=== PATIENT | male | born 1945 | race Caucasian/White ===

== ENCOUNTER 2016-06-02 12:18 | Outpatient (CLI) ==
[2016-02-09 16:20] VITALS: BMI 27.6
[2016-06-02 12:39] LABS: BASOPHILS # (AUTO) 0.1 K/uL (0-0.2); BASOPHILS % (AUTO) 0.9 % (0.0-3.0); EOSINOPHILS # (AUTO) 0.1 K/ul (0.0-0.7); EOSINOPHILS % (AUTO) 1.1 % (0.0-7.0); HEMATOCRIT 38.4 % (42.0-52.0); HEMOGLOBIN 12.2 g/dl (14.0-18.0); LYMPHOCYTES # (AUTO) 3.3 K/uL (0.60-3.4); LYMPHOCYTES % (AUTO) 29.2 (10.0-50.0); MEAN CORPUSCULAR HEMOGLOBIN 27.7 pg (27.0-31.0); MEAN CORPUSCULAR HGB CONC 31.8 (31.8-35.4); MEAN CORPUSCULAR VOLUME 87.3 fl (80.0-94.0); MONOCYTES % (AUTO) 8.9 (0-10); NEUTROPHILS # (AUTO) 6.6 K/ul (2.0-6.9); NEUTROPHILS % (AUTO) 58.9; PLATELET COUNT 316 10^3/uL (140-440); WHITE BLOOD COUNT 11.18 K/ul (4.2-10.2)
[2016-06-02 13:01] LABS: ALBUMIN 3.6 g/dL (3.4-5.0); ALBUMIN/GLOBULIN RATIO 0.88; ANION GAP 14.2; BILIRUBIN,TOTAL 0.26 mg/dL (0.00-1.20); BUN/CREATININE RATIO 13.4; CALCIUM 9.3 mg/dL (8.2-10.2); CREATININE 1.79 mg/dL (0.60-1.10); POTASSIUM 5.2 mmol/L (3.5-5.1); TOTAL PROTEIN 7.7 g/dL (5.8-8.1)
== END 2016-06-02 12:19 | disposition home or self-care (01) ==
LOC: LAB 12:18
PROVIDERS: ATTEND Emergency Medicine
DX: I10 Essential (primary) hypertension (principal); E11.9 Type 2 diabetes mellitus without complications; R10.13 Epigastric pain
CPT/HCPCS: 36415; 80053; 82150; 83036; 83690; 85025

== ENCOUNTER 2016-06-07 09:29 | Outpatient (CLI) | payer OTHER ==
[2016-02-09 16:20] VITALS: BMI 27.6
--- NOTE | 2016-06-07 10:22 | US ---
EXAM: Abdominal ultrasound limited HISTORY: Epigastric pain for 2 weeks COMPARISON: CT abdomen 02/09/2016, 03/28/2015 and abdominal ultrasound 09/28/2011 TECHNIQUE: Sonographic and limited Doppler evaluation of the right upper quadrant was performed. FINDINGS: The liver is increased in echogenicity and measures enlarged at 18.4 cm. There is a comp wendy hypoechoic lesion in the left hepatic lobe measuring 1.2 x 1.3 x 0.8 cm with no internal Doppler flow. This is similar in appearance and position to area of hypoechogenicity on ultrasound abdomen 2012 image 55. The portal vein is patent. The gallbladder demonstrates mild layering sludge with no visualized hyperechoic stones. The gallbladder wall measures 0.3 cm in thickness. Common bile du ct is unremarkable and measures 0.4 cm in diameter. The pancreas is not visualized due to significa nt overlying bowel gas. The right kidney measures 8.0 x 3.4 x 3.7 cm with cortical thickness of 0.9 cm. IMPRESSION: 1. Increased echogenicity of the liver consistent with hepatic steatosis with mild hepatic enlargem ent. 2. Layering gallbladder sludge without wall thickening or pericholecystic fluid. 3. Hypoechoic liver lesion adjacent to the gallbladder likely represents focal fatty sparing and is unchanged in comparison to ultrasound 2012.
== END 2016-06-07 09:30 | disposition home or self-care (01) ==
LOC: RAD 09:29
PROVIDERS: ATTEND Emergency Medicine
DX: R10.13 Epigastric pain (principal); F33.2 Major depressive disorder, recurrent severe without psychotic features; F01.50 Vascular dementia, unspecified severity, without behavioral disturbance, psychotic disturbance, mood disturbance, and anxiety
CPT/HCPCS: 90853

== ENCOUNTER 2016-06-07 10:00 | Outpatient (RCR) ==
[2016-02-09 16:20] VITALS: BMI 27.6
== END 2016-06-08 ==
LOC: NEWBEG 10:00
PROVIDERS: ATTEND Psychiatry & Neurology Psychiatry
DX: F33.2 Major depressive disorder, recurrent severe without psychotic features (principal); F01.50 Vascular dementia, unspecified severity, without behavioral disturbance, psychotic disturbance, mood disturbance, and anxiety
CPT/HCPCS: 90853

== ENCOUNTER 2016-07-02 10:00 | Outpatient (RCR) ==
[2016-02-09 16:20] VITALS: BMI 27.6
== END 2016-07-06 ==
LOC: NEWBEG 10:00
PROVIDERS: ATTEND Psychiatry & Neurology Psychiatry
DX: F33.2 Major depressive disorder, recurrent severe without psychotic features (principal); F01.50 Vascular dementia, unspecified severity, without behavioral disturbance, psychotic disturbance, mood disturbance, and anxiety
CPT/HCPCS: 90853; 99213

== ENCOUNTER 2016-07-23 10:00 | Outpatient (RCR) ==
[2016-02-09 16:20] VITALS: BMI 27.6
== END 2016-08-06 ==
LOC: NEWBEG 10:00
PROVIDERS: ATTEND Psychiatry & Neurology Psychiatry
DX: F33.2 Major depressive disorder, recurrent severe without psychotic features (principal); F01.50 Vascular dementia, unspecified severity, without behavioral disturbance, psychotic disturbance, mood disturbance, and anxiety
CPT/HCPCS: 90853; 99213

== ENCOUNTER 2016-08-04 10:07 | Outpatient (CLI) ==
[2016-02-09 16:20] VITALS: BMI 27.6
== END 2016-08-04 10:08 | disposition home or self-care (01) ==
LOC: WOUND 10:07 → EDSTATUS 10:08
PROVIDERS: ATTEND Nurse Practitioner Family
DX: E11.9 Type 2 diabetes mellitus without complications (principal); I10 Essential (primary) hypertension
CPT/HCPCS: 99203; 99212

== ENCOUNTER 2016-08-12 10:32 | Outpatient (CLI) ==
[2016-02-09 16:20] VITALS: BMI 27.6
[2016-08-12 11:06] LABS: ANION GAP 13.6; BUN/CREATININE RATIO 15.33; CALCIUM 9.5 mg/dL (8.2-10.2); CREATININE 1.5 mg/dL (0.60-1.10); POTASSIUM 4.6 mmol/L (3.5-5.1)
== END 2016-08-12 10:33 | disposition home or self-care (01) ==
LOC: CAR 10:32
PROVIDERS: ATTEND Internal Medicine Pulmonary Disease
DX: R59.0 Localized enlarged lymph nodes (principal); I10 Essential (primary) hypertension; E11.9 Type 2 diabetes mellitus without complications
CPT/HCPCS: 36415; 80048; 93005; 93010

== ENCOUNTER 2016-08-25 10:05 | Outpatient (CLI) | payer OTHER ==
[2016-02-09 16:20] VITALS: BMI 27.6
== END 2016-08-25 10:06 | disposition home or self-care (01) ==
LOC: WOUND 10:05
PROVIDERS: ATTEND Nurse Practitioner Family
DX: E11.49 Type 2 diabetes mellitus with other diabetic neurological complication (principal); I10 Essential (primary) hypertension; K21.9 Gastro-esophageal reflux disease without esophagitis; F41.9 Anxiety disorder, unspecified; F33.9 Major depressive disorder, recurrent, unspecified; M54.5 Low back pain; C34.90 Malignant neoplasm of unspecified part of unspecified bronchus or lung; L30.9 Dermatitis, unspecified
CPT/HCPCS: 99202; 99212

== ENCOUNTER 2016-08-27 09:43 | Outpatient (CLI) ==
[2016-02-09 16:20] VITALS: BMI 27.6
[2016-08-27 10:44] VITALS: BP 132/74; TEMP 97.3
[2016-08-27] MEDS ORDERED: VITAMIN B-12 IM STA (10:45)
--- NOTE | 2016-08-27 11:10 | CT ---
EXAM: CT of the chest with and without contrast History: Lung cancer, follow-up Comparison: Chest radiograph 06/30/2016, chest CT 02/09/2016, pet CT 07/21/2016 Technique: Multiplanar CT images through the thorax were obtained with and without the administrati on of IV contrast Findings: Heart size is normal. Mild bilateral gynecomastia. No pericardial effusion. Coronary ca lcifications. Great vessels are unremarkable. No pathologically enlarged axillary lymph nodes. 1. 6 cm right hilar lymph node. No pathologically enlarged mediastinal lymph nodes. 1.7 cm x 1.3 cm sp iculated right lower lobe lung nodule slightly increased in size. 1 cm cavitary nodule within the li ngula is probably not significantly changed. The other sub-centimeter ground-glass lung nodules are stable. No consolidated pneumonia. No pleural fluid and no pneumothorax.. Within the visualized upper abdomen, fatty infiltration of the liver. 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 No acute osseous abnormalities. Impression: 1. Slight interval increase in size of a spiculated malignant right lower lobe lung nodule. 2. Mildly enlarged right hilar lymph node could be metastatic. 3. The other bilateral lung nodules are unchanged. 4. Coronary artery disease.
== END 2016-08-27 09:44 | disposition home or self-care (01) ==
LOC: OPMED 09:43
PROVIDERS: ATTEND Internal Medicine Medical Oncology
DX: E53.8 Deficiency of other specified B group vitamins (principal); C34.90 Malignant neoplasm of unspecified part of unspecified bronchus or lung; F33.2 Major depressive disorder, recurrent severe without psychotic features; F01.50 Vascular dementia, unspecified severity, without behavioral disturbance, psychotic disturbance, mood disturbance, and anxiety
CPT/HCPCS: 90853; 96372

== ENCOUNTER 2016-09-03 09:31 | Outpatient (CLI) ==
[2016-02-09 16:20] VITALS: BMI 27.6
[2016-09-03 09:57] VITALS: BP 124/55; TEMP 97
[2016-09-03] MEDS: VITAMIN B-12 IM STA (10:04)
[2016-09-07 08:53] LABS: IMMUNOGLOBULIN M, QN, SERUM 40 mg/dL (15-143)
== END 2016-09-03 09:32 | disposition home or self-care (01) ==
LOC: OPMED 09:31
PROVIDERS: ATTEND Internal Medicine Medical Oncology
DX: C34.91 Malignant neoplasm of unspecified part of right bronchus or lung (principal); D68.62 Lupus anticoagulant syndrome; D80.6 Antibody deficiency with near-normal immunoglobulins or with hyperimmunoglobulinemia; E53.9 Vitamin B deficiency, unspecified; F33.2 Major depressive disorder, recurrent severe without psychotic features; F01.50 Vascular dementia, unspecified severity, without behavioral disturbance, psychotic disturbance, mood disturbance, and anxiety
CPT/HCPCS: 36415; 85705; 86320; 90853; 96372

== ENCOUNTER 2016-09-03 10:00 | Outpatient (RCR) ==
[2016-02-09 16:20] VITALS: BMI 27.6
== END 2016-09-05 ==
LOC: NEWBEG 10:00
PROVIDERS: ATTEND Psychiatry & Neurology Psychiatry
DX: F33.2 Major depressive disorder, recurrent severe without psychotic features (principal); F01.50 Vascular dementia, unspecified severity, without behavioral disturbance, psychotic disturbance, mood disturbance, and anxiety
CPT/HCPCS: 90853; 99213

== ENCOUNTER 2016-09-08 09:28 | Outpatient (CLI) ==
[2016-02-09 16:20] VITALS: BMI 27.6
== END 2016-09-08 09:29 | disposition home or self-care (01) ==
LOC: WOUND 09:28
PROVIDERS: ATTEND Nurse Practitioner Family
DX: E11.49 Type 2 diabetes mellitus with other diabetic neurological complication (principal); I10 Essential (primary) hypertension; K21.9 Gastro-esophageal reflux disease without esophagitis; F41.9 Anxiety disorder, unspecified; F33.9 Major depressive disorder, recurrent, unspecified; M54.5 Low back pain; C34.90 Malignant neoplasm of unspecified part of unspecified bronchus or lung; L30.9 Dermatitis, unspecified
CPT/HCPCS: 90832; 99211; 99213

== ENCOUNTER 2016-09-13 12:07 | Outpatient (CLI) | payer OTHER ==
[2016-02-09 16:20] VITALS: BMI 27.6
[2016-09-13 12:35] VITALS: BP 125/54; TEMP 98.8
[2016-09-13] MEDS: VITAMIN B-12 IM ONE (12:56)
== END 2016-09-13 12:08 | disposition home or self-care (01) ==
LOC: OPMED 12:07
PROVIDERS: ATTEND Internal Medicine Medical Oncology
DX: E53.8 Deficiency of other specified B group vitamins (principal); F33.2 Major depressive disorder, recurrent severe without psychotic features; F01.50 Vascular dementia, unspecified severity, without behavioral disturbance, psychotic disturbance, mood disturbance, and anxiety
CPT/HCPCS: 90853; 96372

== ENCOUNTER 2016-09-22 09:23 | Outpatient (CLI) | payer OTHER ==
[2016-02-09 16:20] VITALS: BMI 27.6
== END 2016-09-22 09:24 | disposition home or self-care (01) ==
LOC: WOUND 09:23
PROVIDERS: ATTEND Nurse Practitioner Family
DX: E11.49 Type 2 diabetes mellitus with other diabetic neurological complication (principal); I10 Essential (primary) hypertension; K21.9 Gastro-esophageal reflux disease without esophagitis; F41.9 Anxiety disorder, unspecified; F33.9 Major depressive disorder, recurrent, unspecified; M54.5 Low back pain; C34.90 Malignant neoplasm of unspecified part of unspecified bronchus or lung; L30.9 Dermatitis, unspecified
CPT/HCPCS: 99212; 99213

== ENCOUNTER 2016-10-01 10:00 | Outpatient (RCR) ==
[2016-02-09 16:20] VITALS: BMI 27.6
== END 2016-10-06 ==
LOC: NEWBEG 10:00
PROVIDERS: ATTEND Psychiatry & Neurology Psychiatry
DX: F33.2 Major depressive disorder, recurrent severe without psychotic features (principal); F01.50 Vascular dementia, unspecified severity, without behavioral disturbance, psychotic disturbance, mood disturbance, and anxiety
CPT/HCPCS: 90832; 90853; 99213

== ENCOUNTER 2016-10-06 09:28 | Outpatient (CLI) | payer OTHER ==
[2016-02-09 16:20] VITALS: BMI 27.6
== END 2016-10-06 09:29 | disposition home or self-care (01) ==
LOC: WOUND 09:28
PROVIDERS: ATTEND Nurse Practitioner Family
DX: E11.49 Type 2 diabetes mellitus with other diabetic neurological complication (principal); I10 Essential (primary) hypertension; K21.9 Gastro-esophageal reflux disease without esophagitis; F41.9 Anxiety disorder, unspecified; F33.9 Major depressive disorder, recurrent, unspecified; M54.5 Low back pain; C34.90 Malignant neoplasm of unspecified part of unspecified bronchus or lung; L30.9 Dermatitis, unspecified
CPT/HCPCS: 99213

== ENCOUNTER 2016-10-07 09:21 | Outpatient (RCR) ==
[2016-02-09 16:20] VITALS: BMI 27.6
[2016-10-11 15:00] VITALS: BMI 28.0
== END 2016-11-05 ==
LOC: NEWBEG 09:21
PROVIDERS: ATTEND Psychiatry & Neurology Psychiatry
DX: F33.2 Major depressive disorder, recurrent severe without psychotic features (principal); F01.50 Vascular dementia, unspecified severity, without behavioral disturbance, psychotic disturbance, mood disturbance, and anxiety

== ENCOUNTER 2016-10-11 14:20 | Inpatient (IN) ==
[2016-10-11 15:00] VITALS: BMI 28.0
[2016-10-11] MEDS ORDERED: TYLENOL PO PRN (15:16)
[2016-10-11] MEDS ORDERED: NITROSTAT SL PRN (15:16)
[2016-10-11] MEDS ORDERED: ATROPINE SULFATE PFS IVP PRN (15:16)
[2016-10-11] MEDS ORDERED: MORPHINE 4 MG/ML SYRINGE IVP PRN (15:16)
[2016-10-11] MEDS ORDERED: VISTARIL INJ IM PRN (15:16)
[2016-10-11] MEDS ORDERED: VANCOMYCIN 1 GM in SODIUM CHLORIDE 250 ML IV ONE (15:30)
[2016-10-11 15:42] LABS: BILIRUBIN,URINE Negative (NEGATIVE); KETONES,URINE Negative (NEGATIVE); LEUKOCYTE ESTERASE ,URINE Trace (NEGATIVE); NITRITE,URINE Negative (NEGATIVE); PH,URINE 5.5 (5-9); PROTEIN,URINE Negative (NEGATIVE); URINE, BLOOD Negative (NEGATIVE)
[2016-10-11 15:47] LABS: ADD URINE MICROSCOPIC YES
[2016-10-11 16:06] LABS: BASOPHILS # (AUTO) 0.1 K/uL (0-0.2); BASOPHILS % (AUTO) 0.7 % (0.0-3.0); EOSINOPHILS # (AUTO) 0.1 K/ul (0.0-0.7); HEMATOCRIT 36.3 % (42.0-52.0); HEMOGLOBIN 11.9 g/dl (14.0-18.0); IMMATURE GRANULOCYTE % (AUTO) 1.4 % (0.0-5.0); LYMPHOCYTES % (AUTO) 23.5 (10.0-50.0); MEAN CORPUSCULAR HEMOGLOBIN 28.3 pg (27.0-31.0); MEAN CORPUSCULAR HGB CONC 32.8 (31.8-35.4); MEAN CORPUSCULAR VOLUME 86.4 fl (80.0-94.0); MONOCYTES % (AUTO) 8.1 (0-10); NEUTROPHILS # (AUTO) 8.2 K/ul (2.0-6.9); NEUTROPHILS % (AUTO) 65.3; PLATELET COUNT 341 10^3/uL (140-440); WHITE BLOOD COUNT 12.55 K/ul (4.2-10.2)
[2016-10-11 16:30] LABS: ALANINE AMINOTRANSFERASE 11 U/L (12-78); ALBUMIN 3.6 g/dL (3.4-5.0); ALBUMIN/GLOBULIN RATIO 0.86; ALKALINE PHOSPHATASE 58 U/L (56-119); ANION GAP 14.6; ASPARTATE AMINO TRANSFERASE 12 U/L (15-37); BILIRUBIN,TOTAL 0.21 mg/dL (0.00-1.20); BLOOD UREA NITROGEN 24 mg/dL (7-18); BUN/CREATININE RATIO 15.89; CALCIUM 9.8 mg/dL (8.2-10.2); CARBON DIOXIDE 25 mmol/L (23-31); CHLORIDE 103 mmol/L (98-107); CREATINE KINASE 30 U/L; CREATININE 1.51 mg/dL (0.60-1.10); GLUCOSE 110 mg/dL (82-115); MYOGLOBIN 62 ng/ml; POTASSIUM 4.6 mmol/L (3.5-5.1); SODIUM 138 mmol/L (136-145); TOTAL PROTEIN 7.8 g/dL (5.8-8.1)
--- NOTE | 2016-10-11 16:39 | DI ---
EXAM: Chest one view HISTORY: Cough COMPARISON: 06/30/2016 TECHNIQUE: Single view of the chest was performed FINDINGS: Right chest port terminates in superior vena cava. Prominent epicardial fat pad. No airsp to consolidation. The known right lower lobe nodule is poorly delineated by chest radiograph. There is no pleural effusion or pneumothorax. The heart is normal in size. The mediastinal contour is n ormal. There are no acute abnormalities of the bones. IMPRESSION: No acute cardiopulmonary process. The known right lower lobe nodule is poorly delineate d by chest radiograph
[2016-10-11] MEDS ORDERED: [UNRECOGNIZED DRUG - OTHER] TP PRN (16:45)
[2016-10-11] MEDS ORDERED: PROMETHAZINE HCL 12.5 MG PO PRN (16:45)
[2016-10-11] MEDS ORDERED: SOD CHLORIDE TP PRN (16:45)
[2016-10-11] MEDS ORDERED: LAN TP PRN (16:45)
[2016-10-11] MEDS ORDERED: MILK OF MAGNESIA PO PRN (16:45)
[2016-10-11] MEDS ORDERED: MUCINEX PO PRN (16:45)
[2016-10-11] MEDS: ROCEPHIN 1 GM in SODIUM CHLORIDE 50 ML IV SCH (16:57)
[2016-10-11] MEDS: DIFLUCAN PO SCH ×2 (16:57→20:11)
[2016-10-11] MEDS: SODIUM CHLORIDE 1,000 ML IV SCH (16:59)
[2016-10-11] MEDS: HUMULIN R SUBCUT PRN (17:05)
[2016-10-11] MEDS: CARAFATE PO SCH ×2 (17:08→20:11)
[2016-10-11] MEDS: CATAPRES PO SCH (20:11)
[2016-10-11] MEDS: REQUIP PO SCH (20:11)
[2016-10-11] MEDS: ULTRAM PO SCH (20:11)
[2016-10-11] MEDS: FERROUS SULFATE PO SCH (20:11)
[2016-10-11] MEDS ORDERED: NON-FORMULARY MEDICATION (Ferrous Sulfate [Ferrous Sulfate] 325 MG) PO SCH ×22 (21:00)
[2016-10-11 23:23] LABS: CREATINE KINASE 41 U/L; MYOGLOBIN 52 ng/ml
[2016-10-12] MEDS: PROTONIX PO SCH (05:47)
[2016-10-12] MEDS: CARAFATE PO SCH ×4 (05:47→20:53)
[2016-10-12] MEDS: WELLBUTRIN PO SCH (08:08)
[2016-10-12] MEDS: ARICEPT PO SCH (08:08)
[2016-10-12] MEDS: NORVASC PO SCH (08:08)
[2016-10-12] MEDS: ASPIRIN EC PO SCH (08:09)
[2016-10-12] MEDS: CATAPRES PO SCH ×2 (08:09→20:53)
[2016-10-12] MEDS: ROCEPHIN 1 GM in SODIUM CHLORIDE 50 ML IV SCH (08:09)
[2016-10-12] MEDS: DIFLUCAN PO SCH ×2 (08:09→20:53)
[2016-10-12] MEDS: FLOMAX PO SCH (08:09)
[2016-10-12] MEDS: ULTRAM PO SCH ×2 (08:09→20:53)
[2016-10-12] MEDS: JANUVIA PO SCH (08:09)
[2016-10-12] MEDS: ZESTRIL PO SCH (08:09)
[2016-10-12] MEDS: NAMENDA PO SCH (08:09)
[2016-10-12] MEDS: FERROUS SULFATE PO SCH ×2 (08:09→20:53)
[2016-10-12] MEDS ORDERED: NON-FORMULARY MEDICATION (Amlodipine Besylate [Norvasc] 10 MG) PO SCH ×22 (09:00)
[2016-10-12] MEDS ORDERED: VENLAFAXINE HCL 75 MG PO SCH (09:00)
[2016-10-12] MEDS ORDERED: BUPROPION HCL PO SCH (09:00)
[2016-10-12] MEDS ORDERED: NON-FORMULARY MEDICATION (Pantoprazole Sodium [Protonix] 40 MG) PO SCH ×22 (09:00)
[2016-10-12] MEDS: VANCOMYCIN 500 MG in SODIUM CHLORIDE 100 ML IV SCH ×2 (09:36→20:52)
[2016-10-12] MEDS ORDERED: EFFEXOR XR PO SCH (10:00)
[2016-10-12] MEDS: EFFEXOR XR PO SCH (10:09)
--- NOTE | 2016-10-12 10:23 | PCM.PROG ---
Attending Provider: ATTENDING PROVIDER: [facility] DATE OF SERVICE: 10/12/16 SUBJECTIVE: This 71 year old WHITE/ M was hospitalized 10/11/16 with right foot cellulitis and left toe cellulitis. The patient has recurrent infection which was just clear like one month before and started coming back. The right foot and ankle have redness with dry, flaky skin. Yesterday it was oozing but today there is no drainage, has dried up but is foul smelling and painful to walk. Wound cultures obtained yesterday. REVIEW OF SYSTEMS: CONSTITUTIONAL: No fever, no chills. ENDOCRINE: No weight loss or weight gain. HEENT: No sinus drainage, no sore throat. CVS: No angina symptoms. No CHF symptoms. No palpitations. No atypical chest pain for CAD. No shortness of breath. RESPIRATORY: No cough, no hemoptysis. GI: No melena. No abdominal pain. No nausea, no vomiting. : No hematuria. No polyuria. SKIN: Dry, redness to right foot and ankle. MUSCULOSKELETAL: Foot pain. ACCESS DIRECTOR: No blackout, no dizziness. No headache. No double vision. PSYCHIATRIC: Not anxious; no depression. No suicidal thoughts. No homicidal thoughts. PHYSICAL EXAMINATION: GENERAL: Lying in bed in no distress. VITAL SIGNS: Temperature 98.1 F, Pulse 70, Respiratory Rate 16, BP 120/50, Pulse Ox 95% HEENT: Normocephalic, atraumatic. Mucosa is dry, pallor positive. No icterus. NECK: No JVP, no carotid bruit. No lymphadenopathy. CARDIAC: S1, S2, no S3. No murmur, gallop or regurgitation. LUNGS: Clear to auscultation. ABDOMEN: Soft, non-tender. Bowel sounds active. No rigidity, guarding or CVA tenderness. EXTREMITIES: No clubbing, cyanosis or edema. Dorsum of right foot has dry scaly skin and redness all over foot with foul odor present. Cellulitis left toe. NEUROLOGIC: Awake, alert and oriented x3. LYMPHATIC: No palpable lymph nodes SKIN: Dry, flaky with redness as described above. MUSCULOSKELETAL: No joint swelling. LAB REVIEW: 10/11/16 15:40 10/11/16 15:40 10/11/16 22:55: Total Creatine Kinase 41, Myoglobin 52, Troponin I < 0.0100 10/11/16 17:28: Lactic Acid 10.2 10/11/16 15:40: WBC 12.55 H, RBC 4.20 L, Hgb 11.9 L, Hct 36.3 L, MCV 86.4, MCH 28.3, MCHC 32.8, RDW Coeff of David 15.1 H, Plt Count 341, Immature Gran % (Auto) 1.4, Neut % (Auto) 65.3, Lymph % (Auto) 23.5, [place] % (Auto) 8.1, Eos % (Auto) 1.0, Baso % (Auto) 0.7, Immature Gran # (Auto) 0.2, Neut # 8.2 H, Lymph # 3.0, [place] # 1.0, Eos # 0.1, Baso # 0.1, Sodium 138, Potassium 4.6, Chloride 103, Carbon Dioxide 25, Anion Gap 14.6, BUN 24 H, Creatinine 1.51 H, Estimated GFR ( MDRD) 46.00, BUN/Creatinine Ratio 15.89, Glucose 110, Calcium 9.8, Total Bilirubin 0.21, AST 12 L, ALT 11 L, Alkaline Phosphatase 58, Total Creatine Kinase 30, Myoglobin 62, Troponin I < 0.0100, Total Protein 7.8, Albumin 3.6, Globulin 4.2, Albumin/Globulin Ratio 0.86 10/11/16 15:30: Urine Color Yellow, Urine Clarity Clear, Urine pH 5.5, Ur Specific [place] 1.015, Urine Protein Negative, Urine Glucose (UA) Negative, Urine Ketones Negative, Urine Blood Negative, Urine Nitrite Negative, Urine Bilirubin Negative, Urine Urobilinogen 0.2, Ur Leukocyte Esterase Trace, Urine Microscopic WBC 0-2, Ur Squamous Epith Cells 0-2 ASSESSMENT: 1. Right foot cellulitis, left toe cellulitis 2. Hypertension 3. Dyslipidemia 4. Anemia 5. Chronic kidney disease 6. Lung mass seen by cardiothoracic surgeon for biopsy PLAN: 1. Continue IV Rocephin and Vancomycin 2. Oral Diflucan 3. Keep leg elevated Plan and coordination of the patient's care discussed in the presence of Telecommunications Support and nurse. CONDITION: Stable SCRIBED BY: LEIDA TYLER Flower Stripper scribed while in presence of service [facility] on 10/12/16 ([id number])
[2016-10-12] MEDS: NICODERM 14 MG TD SCH (12:29)
[2016-10-12] MEDS: REQUIP PO SCH (20:53)
[2016-10-12] MEDS: HUMULIN R SUBCUT PRN (22:59)
[2016-10-13] MEDS: SODIUM CHLORIDE 1,000 ML IV SCH (04:14)
[2016-10-13 04:49] LABS: BASOPHILS # (AUTO) 0.1 K/uL (0-0.2); BASOPHILS % (AUTO) 0.9 % (0.0-3.0); EOSINOPHILS # (AUTO) 0.2 K/ul (0.0-0.7); EOSINOPHILS % (AUTO) 1.6 % (0.0-7.0); HEMATOCRIT 34.5 % (42.0-52.0); HEMOGLOBIN 11.2 g/dl (14.0-18.0); IMMATURE GRANULOCYTE % (AUTO) 1.1 % (0.0-5.0); LYMPHOCYTES # (AUTO) 2.8 K/uL (0.60-3.4); LYMPHOCYTES % (AUTO) 27.3 (10.0-50.0); MEAN CORPUSCULAR HEMOGLOBIN 28.1 pg (27.0-31.0); MEAN CORPUSCULAR HGB CONC 32.5 (31.8-35.4); MEAN CORPUSCULAR VOLUME 86.5 fl (80.0-94.0); MONOCYTES % (AUTO) 9.3 (0-10); NEUTROPHILS # (AUTO) 6.1 K/ul (2.0-6.9); NEUTROPHILS % (AUTO) 59.8; PLATELET COUNT 294 10^3/uL (140-440); RED BLOOD COUNT 3.99 10^6/ul (4.70-6.10); WHITE BLOOD COUNT 10.17 K/ul (4.2-10.2)
[2016-10-13 05:17] LABS: ALBUMIN 3.1 g/dL (3.4-5.0); ALBUMIN/GLOBULIN RATIO 0.79; ANION GAP 12.5; BILIRUBIN,TOTAL 0.18 mg/dL (0.00-1.20); BUN/CREATININE RATIO 16.66; CALCIUM 9.4 mg/dL (8.2-10.2); CREATININE 1.26 mg/dL (0.60-1.10); POTASSIUM 4.5 mmol/L (3.5-5.1)
[2016-10-13] MEDS: PROTONIX PO SCH (05:53)
[2016-10-13] MEDS: CARAFATE PO SCH ×4 (05:53→20:20)
[2016-10-13] MEDS: ARICEPT PO SCH (08:26)
[2016-10-13] MEDS: ZESTRIL PO SCH (08:27)
[2016-10-13] MEDS: DIFLUCAN PO SCH ×2 (08:27→20:20)
[2016-10-13] MEDS: ASPIRIN EC PO SCH (08:27)
[2016-10-13] MEDS: ULTRAM PO SCH ×2 (08:28→20:20)
[2016-10-13] MEDS: NORVASC PO SCH (08:28)
[2016-10-13] MEDS: WELLBUTRIN PO SCH (08:28)
[2016-10-13] MEDS: CATAPRES PO SCH ×2 (08:29→20:20)
[2016-10-13] MEDS: NAMENDA PO SCH (08:29)
[2016-10-13] MEDS: FLOMAX PO SCH (08:29)
[2016-10-13] MEDS: JANUVIA PO SCH (08:29)
[2016-10-13] MEDS: FERROUS SULFATE PO SCH ×2 (08:29→20:20)
[2016-10-13] MEDS: EFFEXOR XR PO SCH (08:29)
[2016-10-13] MEDS: NICODERM 14 MG TD SCH (08:30)
[2016-10-13] MEDS: ROCEPHIN 1 GM in SODIUM CHLORIDE 50 ML IV SCH (08:31)
[2016-10-13] MEDS ORDERED: VENLAFAXINE HCL 75 MG PO SCH (09:00)
[2016-10-13] MEDS: VANCOMYCIN 500 MG in SODIUM CHLORIDE 100 ML IV SCH ×2 (09:35→20:20)
[2016-10-13] MEDS: HUMULIN R SUBCUT PRN (17:21)
[2016-10-13] MEDS: REQUIP PO SCH (20:20)
[2016-10-14] MEDS: PROTONIX PO SCH (06:13)
[2016-10-14] MEDS: CARAFATE PO SCH ×4 (06:13→21:00)
[2016-10-14] MEDS: ROCEPHIN 1 GM in SODIUM CHLORIDE 50 ML IV SCH (09:21)
[2016-10-14] MEDS: EFFEXOR XR PO SCH (09:24)
[2016-10-14] MEDS: NORVASC PO SCH (09:24)
[2016-10-14] MEDS: ARICEPT PO SCH (09:24)
[2016-10-14] MEDS: ULTRAM PO SCH ×2 (09:24→21:00)
[2016-10-14] MEDS: NAMENDA PO SCH (09:24)
[2016-10-14] MEDS: WELLBUTRIN PO SCH (09:25)
[2016-10-14] MEDS: JANUVIA PO SCH (09:25)
[2016-10-14] MEDS: ASPIRIN EC PO SCH (09:25)
[2016-10-14] MEDS: ZESTRIL PO SCH (09:26)
[2016-10-14] MEDS: FLOMAX PO SCH (09:26)
[2016-10-14] MEDS: DIFLUCAN PO SCH ×2 (09:26→21:00)
[2016-10-14] MEDS: FERROUS SULFATE PO SCH ×2 (09:26→21:00)
[2016-10-14] MEDS: NICODERM 14 MG TD SCH (09:27)
[2016-10-14] MEDS: CATAPRES PO SCH ×2 (09:28→21:00)
--- NOTE | 2016-10-14 10:43 | PCM.PROG ---
Attending Provider: ATTENDING PROVIDER: [facility] DATE OF SERV[facility]: 10/14/16 SUBJECTIVE: This 71 year old WHITE/ M was hospitalized 10/11/16. The redness and swelling of the right foot is better. There is a new spot below the right ankle posteriorly, which is red and raw looking and is weeping. The patient still complains of pain in foot. The dorsum of right foot swelling and redness is better; the skin is peeling. There are multiple open areas that are dried up and as described red patch below the ankle medically, weeping, red not warm to touch. REVIEW OF SYSTEMS: CONSTITUTIONAL: No fever, no chills. ENDOCRINE: No weight loss or weight gain. HEENT: No sinus drainage, no sore throat. CVS: No angina symptoms. No CHF symptoms. No palpitations. No atypical chest pain for CAD. No shortness of breath. RESPIRATORY: No cough, no hemoptysis. GI: No melena. No abdominal pain. No nausea, no vomiting. : No hematuria. No polyuria. SKIN: As described in the subjective. MUSCULOSKELETAL: Right foot pain. AIRPLANE DESIGNER: No blackout, no dizziness. No headache. No double vision. PSYCHIATRIC: Not anxious; no depression. No suicidal thoughts. No homicidal thoughts. PHYSICAL EXAMINATION: GENERAL: Lying in bed in no distress. VITAL SIGNS: Temperature 97.5 F, Pulse 71, Respiratory Rate 18, BP 109/52, Pulse Ox 98% HEENT: Normocephalic, atraumatic. Mucosa is dry, pallor positive. NECK: No JVP, no carotid bruit. No lymphadenopathy. CARDIAC: S1, S2, no S3. No murmur, gallop or regurgitation. LUNGS: Clear to auscultation. ABDOMEN: Soft, non-tender. Bowel sounds active. No rigidity, guarding or CVA tenderness. EXTREMITIES: Less redness and swelling of the right foot. There is a new spot below the right ankle posteriorly, which is red and raw looking and is weeping. The dorsum of right foot swelling and redness is better; the skin is peeling. There are multiple open areas that are dried up and as described red patch below the ankle medically, weeping, red, not warm to touch. NEUROLOGIC: Awake, alert and oriented x3. LYMPHATIC: No palpable lymph nodes SKIN: As described above. MUSCULOSKELETAL: No joint swelling. LAB REVIEW: 10/13/16 04:46 10/13/16 04:46 ASSESSMENT: 1. Right foot cellulitis, left toe cellulitis 2. Hypertension 3. Dyslipidemia 4. Anemia 5. Chronic kidney disease 6. Lung mass seen by cardiothoracic surgeon for biopsy PLAN: 1. Stop Vancomycin. 2. Continue Rocephin and Diflucan. Plan and coordination of the patient's care discussed in the presence of Air Transportation Provider and nurse. CONDITION: Stable SCRIBED BY: LEIDA TYLER Music Adapter scribed while in presence of service [facility] 10/14/16 ([id number])
[2016-10-14] MEDS: HUMULIN R SUBCUT PRN ×2 (11:39→21:11)
[2016-10-14] MEDS: SODIUM CHLORIDE 1,000 ML IV SCH (16:25)
[2016-10-14] MEDS: REQUIP PO SCH (21:00)
[2016-10-15] MEDS: CARAFATE PO SCH ×4 (05:36→22:50)
[2016-10-15] MEDS: PROTONIX PO SCH (05:36)
[2016-10-15] MEDS: GOLD BOND ULTIMATE HEALING TP SCH ×2 (09:45→22:52)
[2016-10-15] MEDS: WELLBUTRIN PO SCH (09:47)
[2016-10-15] MEDS: ZESTRIL PO SCH (09:49)
[2016-10-15] MEDS: ROCEPHIN 1 GM in SODIUM CHLORIDE 50 ML IV SCH (09:49)
[2016-10-15] MEDS: NICODERM 14 MG TD SCH (09:50)
[2016-10-15] MEDS: NORVASC PO SCH (09:50)
[2016-10-15] MEDS: NAMENDA PO SCH (09:51)
[2016-10-15] MEDS: JANUVIA PO SCH (09:51)
[2016-10-15] MEDS: FLOMAX PO SCH (09:51)
[2016-10-15] MEDS: CATAPRES PO SCH ×2 (09:52→22:50)
[2016-10-15] MEDS: FERROUS SULFATE PO SCH ×2 (09:52→22:51)
[2016-10-15] MEDS: DIFLUCAN PO SCH ×2 (09:52→22:51)
[2016-10-15] MEDS: EFFEXOR XR PO SCH (09:52)
[2016-10-15] MEDS: ASPIRIN EC PO SCH (09:53)
[2016-10-15] MEDS: ARICEPT PO SCH (09:53)
[2016-10-15] MEDS: ULTRAM PO SCH ×3 (09:55→22:57)
[2016-10-15] MEDS: HUMULIN R SUBCUT PRN ×2 (12:06→18:10)
[2016-10-15] MEDS: REQUIP PO SCH (22:51)
[2016-10-16] MEDS: PROTONIX PO SCH (05:59)
[2016-10-16] MEDS: CARAFATE PO SCH ×4 (05:59→20:47)
[2016-10-16] MEDS: ZESTRIL PO SCH (09:17)
[2016-10-16] MEDS: ROCEPHIN 1 GM in SODIUM CHLORIDE 50 ML IV SCH (09:17)
[2016-10-16] MEDS: DIFLUCAN PO SCH ×2 (09:18→20:46)
[2016-10-16] MEDS: WELLBUTRIN PO SCH (09:18)
[2016-10-16] MEDS: NORVASC PO SCH (09:18)
[2016-10-16] MEDS: FLOMAX PO SCH (09:18)
[2016-10-16] MEDS: ARICEPT PO SCH (09:19)
[2016-10-16] MEDS: EFFEXOR XR PO SCH (09:19)
[2016-10-16] MEDS: JANUVIA PO SCH (09:19)
[2016-10-16] MEDS: NAMENDA PO SCH (09:20)
[2016-10-16] MEDS: FERROUS SULFATE PO SCH ×2 (09:20→20:47)
[2016-10-16] MEDS: ULTRAM PO SCH ×2 (09:20→20:54)
[2016-10-16] MEDS: CATAPRES PO SCH ×2 (09:20→20:48)
[2016-10-16] MEDS: ASPIRIN EC PO SCH (09:20)
[2016-10-16] MEDS: NICODERM 14 MG TD SCH (09:21)
[2016-10-16] MEDS: GOLD BOND ULTIMATE HEALING TP SCH ×2 (09:21→20:48)
[2016-10-16] MEDS: REQUIP PO SCH (20:46)
[2016-10-17 05:14] LABS: BASOPHILS # (AUTO) 0.1 K/uL (0-0.2); BASOPHILS % (AUTO) 1.1 % (0.0-3.0); EOSINOPHILS # (AUTO) 0.2 K/ul (0.0-0.7); EOSINOPHILS % (AUTO) 1.5 % (0.0-7.0); HEMATOCRIT 36.4 % (42.0-52.0); HEMOGLOBIN 12.1 g/dl (14.0-18.0); LYMPHOCYTES # (AUTO) 3.3 K/uL (0.60-3.4); LYMPHOCYTES % (AUTO) 26.3 (10.0-50.0); MEAN CORPUSCULAR HEMOGLOBIN 28.5 pg (27.0-31.0); MEAN CORPUSCULAR HGB CONC 33.2 (31.8-35.4); MEAN CORPUSCULAR VOLUME 85.6 fl (80.0-94.0); MONOCYTES # (AUTO) 1.1 K/uL (0.4-2.0); MONOCYTES % (AUTO) 9.1 (0-10); NEUTROPHILS # (AUTO) 7.6 K/ul (2.0-6.9); PLATELET COUNT 285 10^3/uL (140-440); RED BLOOD COUNT 4.25 10^6/ul (4.70-6.10); WHITE BLOOD COUNT 12.49 K/ul (4.2-10.2)
[2016-10-17 05:40] LABS: ALBUMIN 3.3 g/dL (3.4-5.0); ALBUMIN/GLOBULIN RATIO 0.87; ANION GAP 15.4; BILIRUBIN,TOTAL 0.32 mg/dL (0.00-1.20); BUN/CREATININE RATIO 17.69; CALCIUM 9.9 mg/dL (8.2-10.2); CREATININE 1.3 mg/dL (0.60-1.10); POTASSIUM 4.4 mmol/L (3.5-5.1); TOTAL PROTEIN 7.1 g/dL (5.8-8.1)
[2016-10-17] MEDS: PROTONIX PO SCH (05:45)
[2016-10-17] MEDS: CARAFATE PO SCH ×4 (05:45→21:15)
[2016-10-17] MEDS: WELLBUTRIN PO SCH (08:30)
[2016-10-17] MEDS: EFFEXOR XR PO SCH (08:30)
[2016-10-17] MEDS: DIFLUCAN PO SCH ×2 (08:33→21:16)
[2016-10-17] MEDS: NORVASC PO SCH (08:34)
[2016-10-17] MEDS: ASPIRIN EC PO SCH (08:34)
[2016-10-17] MEDS: JANUVIA PO SCH (08:35)
[2016-10-17] MEDS: FLOMAX PO SCH (08:35)
[2016-10-17] MEDS: ZESTRIL PO SCH (08:36)
[2016-10-17] MEDS: CATAPRES PO SCH ×2 (08:36→21:16)
[2016-10-17] MEDS: FERROUS SULFATE PO SCH ×2 (08:36→21:15)
[2016-10-17] MEDS: NAMENDA PO SCH (08:37)
[2016-10-17] MEDS: ARICEPT PO SCH (08:37)
[2016-10-17] MEDS: NICODERM 14 MG TD SCH (08:42)
[2016-10-17] MEDS: GOLD BOND ULTIMATE HEALING TP SCH ×2 (08:43→21:22)
[2016-10-17] MEDS: ROCEPHIN 1 GM in SODIUM CHLORIDE 50 ML IV SCH (08:55)
[2016-10-17] MEDS: ULTRAM PO SCH ×2 (09:06→21:16)
[2016-10-17] MEDS: PHENERGAN TAB PO PRN (14:14)
[2016-10-17] MEDS: REQUIP PO SCH (21:15)
[2016-10-17] MEDS: NYSTOP POWDER TP SCH (22:34)
[2016-10-18] MEDS: PROTONIX PO SCH (05:57)
[2016-10-18] MEDS: CARAFATE PO SCH ×4 (05:57→21:27)
[2016-10-18] MEDS ORDERED: NYSTOP POWDER TP STA ×2 (06:54)
[2016-10-18] MEDS: ARICEPT PO SCH (08:35)
[2016-10-18] MEDS: DIFLUCAN PO SCH ×2 (08:36→21:27)
[2016-10-18] MEDS: CATAPRES PO SCH ×2 (08:36→21:28)
[2016-10-18] MEDS: ASPIRIN EC PO SCH (08:36)
[2016-10-18] MEDS: JANUVIA PO SCH (08:37)
[2016-10-18] MEDS: FERROUS SULFATE PO SCH ×2 (08:37→21:28)
[2016-10-18] MEDS: FLOMAX PO SCH (08:37)
[2016-10-18] MEDS: EFFEXOR XR PO SCH (08:37)
[2016-10-18] MEDS: NAMENDA PO SCH (08:38)
[2016-10-18] MEDS: NICODERM 14 MG TD SCH (08:39)
[2016-10-18] MEDS: NORVASC PO SCH (08:39)
[2016-10-18] MEDS: ROCEPHIN 1 GM in SODIUM CHLORIDE 50 ML IV SCH (08:40)
[2016-10-18] MEDS: ULTRAM PO SCH ×2 (08:41→21:28)
[2016-10-18] MEDS: WELLBUTRIN PO SCH (08:41)
[2016-10-18] MEDS: ZESTRIL PO SCH (08:41)
[2016-10-18] MEDS: NYSTOP POWDER TP SCH ×2 (08:46→21:28)
[2016-10-18] MEDS: GOLD BOND ULTIMATE HEALING TP SCH ×2 (10:27→21:28)
[2016-10-18 13:15] LABS: AEROBIC + ANAEROB SUSC Final report (.); BACTERIA IDENTIFICATION Final report (.)
[2016-10-18 13:15] LABS: AEROBIC + ANAEROB SUSC Final report (.); BACTERIA IDENTIFICATION Final report (.)
--- NOTE | 2016-10-18 14:30 | PN ---
DATE OF SERVICE: 10/16/16 SUBJECTIVE: The patient was admitted with the right lower bilateral foot cellulitis right more than the left. Almost getting better and able to walk. Still has open wounds on the right foot. REVIEW OF SYSTEMS: CONSTITUTIONAL: No fever, no chills. HEENT: Normal. ENDOCRINE: No weight gain, no weight loss. CVS: No angina symptoms. No CHF symptoms. No palpitations. No atypical chest pain for CAD. No shortness of breath. No PND, no orthopnea. RESPIRATORY: No cough, no hemoptysis. GI: No nausea, no vomiting. No abdominal pain. : No hematuria. No polyuria. MUSCULOSKELETAL:. No joint swelling. PSYCHIATRIC: Not anxious. No depression. No suicidal thoughts. No homicidal thoughts. SKIN: Intact. No rash. PHYSICAL EXAMINATION: V/S: Blood pressure 1110/60, respiratory rate 20. heart rate 68, temperature 97.1. HEENT: Normocephalic, atraumatic. Mucosa dry. Pallor positive. No icterus. NECK: Supple. No JVD, no carotid bruit. No lymphadenopathy. LUNGS: Clear to auscultation. No rales or rhonchi. HEART: S1, S2 normal. No S3. No murmur, gallop or regurgitation. ABDOMEN: Soft, nontender. Bowel sounds active. No rigidity. No rebound or guarding. No CVA tenderness. EXTREMITIES: No clubbing, cyanosis or pedal edema. Right foot dried wound lesions which are tender to touch and warm to touch, fowl smelling. Left foot the toes are red with no open areas almost drying up. MUSCULOSKELETAL: No joint swelling. NEUROLOGIC: Awake, alert, oriented times three. No focal deficit. LYMPHATIC: No lymph nodes palpable. SKIN: Intact. LABS: WBC from October 13.17, hgb 11.2, hct 34.5, plt count 294, sodium 140, potassium 4.5, chloride 106, bicarb 26, BUN 21, creatinine 1.26. ASSESSMENT: 1. Right foot cellulitis 2. Chronic kidney disease 3. Diabetes 4. Anemia 5. Hypertension 6. Dyslipidemia 7. Lung cancer right side, scheduled to have a biopsy done 8. Osteo arthritis 9. DJD spine PLAN: 1. Continue the Antibiotic Rocephin 2. Diflucan 100mg PO twice a day 3. Accu-checks with the coverage 4. Activity as tolerated TIME SPENT: More than 30 minutes MTDD
--- NOTE | 2016-10-18 15:04 | PN ---
DATE OF SERVICE: 10/17/16 SUBJECTIVE: The patient was admitted with right foot cellulitis. The patient has been more active. The wound was all dried up and needing some wound care which is being taken care of by the nurses. REVIEW OF SYSTEMS: CONSTITUTIONAL: No fever, no chills. HEENT: Normal. ENDOCRINE: No weight gain, no weight loss. CVS: No angina symptoms. No CHF symptoms. No palpitations. No atypical chest pain for CAD. No shortness of breath. No PND, no orthopnea. RESPIRATORY: No cough, no hemoptysis. GI: No nausea, no vomiting. No abdominal pain. : No hematuria. No polyuria. MUSCULOSKELETAL:. No joint swelling. PSYCHIATRIC: Not anxious. No depression. No suicidal thoughts. No homicidal thoughts. SKIN: Intact. No rash. PHYSICAL EXAMINATION: V/S: Blood pressure 115/78, respiratory rate 16/, heart rate 73, temperature 96.8. HEENT: Normocephalic, atraumatic. Mucosa dry. Pallor positive. No icterus. NECK: Supple. No JVD, no carotid bruit. No lymphadenopathy. LUNGS: Clear to auscultation. No rales or rhonchi. HEART: S1, S2 normal. No S3. No murmur, gallop or regurgitation. ABDOMEN: Soft, nontender. Bowel sounds active. No rigidity. No rebound or guarding. No CVA tenderness. EXTREMITIES: No clubbing, cyanosis or pedal edema. Right foot redness and tenderness is better. A lot of dry scaly areas which are healing and some open areas which are dried. Fowl smelling foot. MUSCULOSKELETAL: No joint swelling. NEUROLOGIC: Awake, alert, oriented times three. No focal deficit. LYMPHATIC: No lymph nodes palpable. SKIN: Intact. LABS: Sodium 137, potassium 4.4, chloride 103, Bicarb 23, BUN 23, creatinine 1.30, WBC 12.49, hgb 12.1, hct 36.4, plt count 285. ASSESSMENT: 1. Right foot cellulitis 2. Left foot toes cellulitis which is getting better, still has some open wounds on the right foot 3. Anemia 4. Chronic kidney disease 5. Hypertension 6. Dyslipidemia 7. Osteoarthritis 8. DJD Spine PLAN: 1. Continue the Diflucan and Rocephin 2. Accu-checks with coverage 3. Evaluation for the custodial as patient lives at the Assisted Living Facility and they can not take care of the patient with the open wounds. TIME SPENT: More than 30 minutes MTDD
[2016-10-18] MEDS: PHENERGAN TAB PO PRN (17:42)
[2016-10-18] MEDS: HUMULIN R SUBCUT PRN (21:25)
[2016-10-18] MEDS: REQUIP PO SCH (21:28)
[2016-10-19 04:35] LABS: BASOPHILS # (AUTO) 0.1 K/uL (0-0.2); EOSINOPHILS # (AUTO) 0.2 K/ul (0.0-0.7); EOSINOPHILS % (AUTO) 1.3 % (0.0-7.0); HEMATOCRIT 32.8 % (42.0-52.0); HEMOGLOBIN 10.9 g/dl (14.0-18.0); LYMPHOCYTES % (AUTO) 26.8 (10.0-50.0); MEAN CORPUSCULAR HEMOGLOBIN 28.8 pg (27.0-31.0); MEAN CORPUSCULAR HGB CONC 33.2 (31.8-35.4); MEAN CORPUSCULAR VOLUME 86.5 fl (80.0-94.0); MONOCYTES # (AUTO) 1.1 K/uL (0.4-2.0); NEUTROPHILS # (AUTO) 6.7 K/ul (2.0-6.9); NEUTROPHILS % (AUTO) 59.9; PLATELET COUNT 278 10^3/uL (140-440); RED BLOOD COUNT 3.79 10^6/ul (4.70-6.10); WHITE BLOOD COUNT 11.26 K/ul (4.2-10.2)
[2016-10-19 04:57] LABS: ALBUMIN 3.2 g/dL (3.4-5.0); ALBUMIN/GLOBULIN RATIO 0.84; ANION GAP 12.6; BILIRUBIN,TOTAL 0.16 mg/dL (0.00-1.20); BUN/CREATININE RATIO 21.38; CALCIUM 9.2 mg/dL (8.2-10.2); CREATININE 1.59 mg/dL (0.60-1.10); POTASSIUM 4.6 mmol/L (3.5-5.1)
[2016-10-19] MEDS: PROTONIX PO SCH (05:38)
[2016-10-19] MEDS: CARAFATE PO SCH ×2 (05:38→11:57)
[2016-10-19] MEDS: FLOMAX PO SCH (08:58)
[2016-10-19] MEDS: NORVASC PO SCH (08:58)
[2016-10-19] MEDS: EFFEXOR XR PO SCH (08:58)
[2016-10-19] MEDS: ASPIRIN EC PO SCH (08:58)
[2016-10-19] MEDS: ARICEPT PO SCH (08:58)
[2016-10-19] MEDS: NAMENDA PO SCH (08:59)
[2016-10-19] MEDS: ULTRAM PO SCH (08:59)
[2016-10-19] MEDS: FERROUS SULFATE PO SCH (08:59)
[2016-10-19] MEDS: DIFLUCAN PO SCH (08:59)
[2016-10-19] MEDS: JANUVIA PO SCH (08:59)
[2016-10-19] MEDS: ZESTRIL PO SCH (08:59)
[2016-10-19] MEDS: WELLBUTRIN PO SCH (09:00)
[2016-10-19] MEDS: CATAPRES PO SCH (09:01)
[2016-10-19] MEDS: NICODERM 14 MG TD SCH (09:01)
[2016-10-19] MEDS: GOLD BOND ULTIMATE HEALING TP SCH (09:02)
[2016-10-19] MEDS: NYSTOP POWDER TP SCH (09:03)
[2016-10-19] MEDS: ROCEPHIN 1 GM in SODIUM CHLORIDE 50 ML IV SCH (09:04)
--- NOTE | 2016-10-19 09:16 | PCM.PROG ---
Attending Provider: ATTENDING PROVIDER: [facility] DATE OF SERVICE: 10/19/16 SUBJECTIVE: This 71 year old WHITE/ M was hospitalized 10/11/16 with right foot cellulitis. The cellulitis is getting better, dried areas and scaly areas on top of right foot, left second, third and fourth toe right. The patient is being evaluated for care home placement. skin patient has wounds, healthy looking no drainage warm to touch REVIEW OF SYSTEMS: CONSTITUTIONAL: No fever, no chills. ENDOCRINE: No weight loss or weight gain. HEENT: No sinus drainage, no sore throat. CVS: No angina symptoms. No CHF symptoms. No palpitations. No atypical chest pain for CAD. No shortness of breath. No PND, nor orthopnea. RESPIRATORY: No cough, no hemoptysis. GI: No melena. No abdominal pain. No nausea, no vomiting. : No hematuria. No polyuria. SKIN: Wounds bilateral feet/toes healthy looking. No drainage. Warm to touch. MUSCULOSKELETAL: No pain. MANAGER ENT: No blackout, no dizziness. No headache. No double vision. PSYCHIATRIC: Not anxious; no depression. No suicidal thoughts. No homicidal thoughts. PHYSICAL EXAMINATION: GENERAL: Lying in bed in no distress. VITAL SIGNS: Temperature 97.1 F, Pulse 68, Respiratory Rate 20, BP 120/63, Pulse Ox 97% HEENT: Normocephalic, atraumatic. Mucosa is dry, pallor positive. NECK: No JVP, no carotid bruit. No lymphadenopathy. CARDIAC: S1, S2, no S3. No murmur, gallop or regurgitation. LUNGS: Clear to auscultation. ABDOMEN: Soft, non-tender. Bowel sounds active. No rigidity, guarding or CVA tenderness. EXTREMITIES: Cellulitis with dried and scaly areas on top of right foot, left second, third and fourth toe right. No drainage. Healthy looking, warm to touch. NEUROLOGIC: Awake, alert and oriented x3. LYMPHATIC: No palpable lymph nodes SKIN: Not dry. Intact. MUSCULOSKELETAL: No joint swelling. LAB REVIEW: 10/19/16 04:33 10/19/16 04:33 10/19/16 04:33: WBC 11.26 H, RBC 3.79 L, Hgb 10.9 L, Hct 32.8 L, MCV 86.5, MCH 28.8, MCHC 33.2, RDW Coeff of David 14.6, Plt Count 278, Immature Gran % (Auto) 1.0, Neut % (Auto) 59.9, Lymph % (Auto) 26.8, [place] % (Auto) 10.0, Eos % (Auto) 1.3, Baso % (Auto) 1.0, Immature Gran # (Auto) 0.1, Neut # 6.7, Lymph # 3.0, [place] # 1.1, Eos # 0.2, Baso # 0.1, Sodium 140, Potassium 4.6, Chloride 106, Carbon Dioxide 26, Anion Gap 12.6, BUN 34 H, Creatinine 1.59 H, Estimated GFR ( MDRD) 43.00, BUN/Creatinine Ratio 21.38, Glucose 115, Calcium 9.2, Total Bilirubin 0.16, AST 12 L, ALT 9 L, Alkaline Phosphatase 58, Total Protein 7.0, Albumin 3.2 L, Globulin 3.8, Albumin/Globulin Ratio 0.84 10/11/16 18:14: Aerob & Anaerob Suscept Alcaligenes faecalis H, Organism ID Alcaligenes faecalis H, Bacterial ID Final report H 10/11/16 17:32: Aerob & Anaerob Suscept Alcaligenes faecalis H, Organism ID Alcaligenes faecalis H, Bacterial ID Final report H ASSESSMENT: 1. Right foot cellulitis, left toe cellulitis getting better, organism alcaligenes faecalis 2. Hypertension 3. Dyslipidemia 4. Anemia 5. Chronic kidney disease 6. Lung mass, most likely cancer, seen by cardiothoracic surgeon for biopsy 7. Depression 8. Alzheimer's dementia 9. Benign prostatic hypertrophy 10. Diabetes mellitus 11. GERD 12. Restless leg syndrome PLAN: 1. NH placement 2. CBC, CMP in one week, then every 3 months 3. PT/OT evaluate and treat 4. Wound care nurse to follow patient 5. Diet cardiac and diabetic diet 6. Accu-Cheks daily 7. May participate in care home activities 8. Follow up during care home rounds in one week 9. Change antibiotic to oral depending on sensitivity 10. Activity as tolerated 11. Keep legs elevated when resting Plan and coordination of the patient's care discussed in the presence of Machine Engraver and nurse. CONDITION: Stable SCRIBED BY: LEIDA TYLER Computator scribed while in presence of service performed by Dr. THI [facility] on 10/19/16 ([id number])
--- NOTE | 2016-10-19 10:05 | PN ---
DATE OF SERVICE: 10/18/16 SUBJECTIVE: The patient was admitted with the right foot cellulitis which is a lot better and some dried spots otherwise he is walking and no fever. Linda Rodriguez is going try to talk to the assisted living facility as patient will be transferred to the [facility] or the to facility. REVIEW OF SYSTEMS: CONSTITUTIONAL: No fever, no chills. HEENT: Normal. ENDOCRINE: No weight gain, no weight loss. CVS: No angina symptoms. No CHF symptoms. No palpitations. No atypical chest pain for CAD. No shortness of breath. No PND, no orthopnea. RESPIRATORY: No cough, no hemoptysis. GI: No nausea, no vomiting. No abdominal pain. : No hematuria. No polyuria. MUSCULOSKELETAL:. No joint swelling. PSYCHIATRIC: Not anxious. No depression. No suicidal thoughts. No homicidal thoughts. SKIN: Intact. No rash. PHYSICAL EXAMINATION: V/S: Blood pressure 132/55, respiratory rate 18, heart rate 73, temperature 97.5. HEENT: Normocephalic, atraumatic. Mucosa dry. Pallor positive. No icterus. NECK: Supple. No JVD, no carotid bruit. No lymphadenopathy. LUNGS: Decreased and clear to auscultation. No rales or rhonchi. HEART: S1, S2 normal. No S3. No murmur, gallop or regurgitation. ABDOMEN: Soft, nontender. Bowel sounds active. No rigidity. No rebound or guarding. No CVA tenderness. EXTREMITIES: No clubbing, cyanosis or pedal edema. Right foot redness and swelling is better. Still is red with multiple excoriated lesions and small open wounds which are dried. Non tender spots. MUSCULOSKELETAL: No joint swelling. NEUROLOGIC: Awake, alert, oriented times three. No focal deficit. LYMPHATIC: No lymph nodes palpable. SKIN: Intact. LABS: WBC 12.49, hgb 12.1, hct 36.4, plt count 285, sodium 137, potassium 4.4, Chloride 103, bicarb 23, BUN 23 and creatinine 1.30 ASSESSMENT: 1. Right foot cellulitis 2. Anemia 3. Chronic kidney disease 4. Hypertension 5. Depression PLAN: 1. Possible placement for the [facility]. 2. Continue the Rocephin 3. Activity as tolerated. TIME SPENT: More than 30 minutes MTDD
[2016-10-19 11:12] VITALS: BP 118/57; TEMP 97.8
[2016-10-19] MEDS: HUMULIN R SUBCUT PRN (11:57)
--- NOTE | 2016-10-20 15:29 | PN ---
DATE OF SERVICE: 10/15/16 SUBJECTIVE: The patient was admitted with the right and left foot cellulitis. Swelling and redness is a lot better, lot of scaly lesions and fowl smelling odor. The patient is walking and active. No fever, chill, PND or orthopnea. REVIEW OF SYSTEMS: CONSTITUTIONAL: No fever, no chills. HEENT: Normal. ENDOCRINE: No weight gain, no weight loss. CVS: No angina symptoms. No CHF symptoms. No palpitations. No atypical chest pain for CAD. No shortness of breath. No PND, no orthopnea. RESPIRATORY: No cough, no hemoptysis. GI: No nausea, no vomiting. No abdominal pain. : No hematuria. No polyuria. MUSCULOSKELETAL:. No joint swelling. PSYCHIATRIC: Not anxious. No depression. No suicidal thoughts. No homicidal thoughts. SKIN: Intact. No rash. PHYSICAL EXAMINATION: V/S: Blood pressure 135/56, respiratory rate 16, heart rate 82, temperature 97.2. HEENT: Normocephalic, atraumatic. Mucosa dry. Pallor positive. No icterus. NECK: Supple. No JVD, no carotid bruit. No lymphadenopathy. LUNGS: Clear to auscultation. No rales or rhonchi. HEART: S1, S2 normal. No S3. No murmur, gallop or regurgitation. ABDOMEN: Soft, nontender. Bowel sounds active. No rigidity. No rebound or guarding. No CVA tenderness. EXTREMITIES: No clubbing, cyanosis or pedal edema. Right dorsum of the foot redness and swelling is decreased. Multiple open lesions which are all dry. Left toes redness and swelling is better but still redness is present. MUSCULOSKELETAL: No joint swelling. NEUROLOGIC: Awake, alert, oriented times three. No focal deficit. LYMPHATIC: No lymph nodes palpable. SKIN: Intact. LABS: Wound Culture moderate growth of gram negative rods. WBC 10.17, hgb 11.2, hct 34.5, plt count 294, sodium 140, potassium 4.5, chloride 106, bicarb 26, BUN 21 and creatinine 1.26. ASSESSMENT: 1. Right foot cellulitis 2. Left toes cellulitis 3. Anemia 4. Hypertension 5. Dyslipidemia 6. Osteoarthritis 7. DJD spine 8. Diabetes PLAN: 1. Continue the Rocephin 1 gram daily 2. Wet to dry dressing 3. Cleaning the areas 4. Possible [facility] placement as patient lives at the Assisted Living facility and they do not have facility to take care of the wounds at the given time. TIME SPENT: More than 30 minutes AME
--- NOTE | 2016-10-21 14:29 | DS ---
DATE OF SERVICE: 10/19/16 FINAL DIAGNOSIS: 1. Bilateral foot cellulitis right more than left, organism alcaligenes faecalis 2. Chronic kidney disease 3. Diabetes 4. Anemia 5. hypertension 6. Dyslipidemia 7. Lung mass, mostly lung cancer which is seen by the cardiothoracic surgeon for the possible biopsy 8. Depression 9. Alzheimer's dementia 10.BPH 11.GERD 12.Restless leg syndrome DISCHARGE INSTRUCTIONS: Discharge the patient to [facility]. CBC and CMP in one week then every three months. Please be checked by the preventive medicine specialist for the right foot wounds. PT/OT evaluate and treat. The patient has followup with [facility] in [place] at October 21 at 3:15pm, Devin, Oncology October 25, Dr. Nicolas [facility] [place] [address] Kenney Lung doctor on November 30. Please make sure patient has his following appointment which is very important because patient is in the processes of evaluation for the lung cancer. Continue the rest of the home medications. MEDICATIONS AT DISCHARGE: Tylenol PRN Norvasc 10mg PO daily Wellbutrin 37.5mg PO daily Clonidine 0.1mg PO twice a day Aricept 10mg PO daily Iron 325mg PO twice a day Lisinopril 10mg PO daily Milk of Magnesia 30ml PO daily PRN Namenda 10mg PO daily Protonix 40mg PO daily Requip 1mg PO at bedtime Januvia 50mg tablet daily Tamsulosin 0.4mg Po daily Venlafaxine 75mg PO daily NEW PRESCRIPTIONS: Levaquin 250mg PO daily for 5 days Diflucan 100mg twice a day for seven days. DIET INSTRUCTIONS: Cardiac and heart healthy diet ACTIVITY: As much as tolerated. Keep the legs elevated at resting Can participate in the detention activities. SMOKING: Light tobacco smoker DISEASE SPECIFIC EDUCATION: Foot ulcers Risk of Osteomyelitis and amputation been discussed with the patient multiple times and verbalized understanding. HOSPITAL COURSE: Dae Feng who was patient from the [facility] was seen in the [facility] office. He came for the followup show that he has pain, swelling and tenderness in the right foot and the leg for which the patient was evaluated already in two different emergency rooms once at [facility] and other at [facility] [place] and was put on the antibiotic Bactrim and was not getting better. He was hurting to walk and stand on the leg. At that time the patient was admitted to the hospital and started on the Vancomycin, Rocephin and the Diflucan. Gradually the swelling and the redness was getting better. WBC was 12,000 initially. Hgb was 11.9, BUN 24, creatinine 1.51. The patient has history of chronic kidney disease. Wound cultures were obtained and Vancomycin trough level were under control. Wound cultures were sent outside which showed the alcaligenes faecalis and sensitive to the Rocephin. Meanwhile the redness and the swelling was almost coming to the normal, still has some redness on the dorsum of the foot and the left side on the toes, not warm to touch no drainage. Meanwhile the assisted living facility said that patient can not come back there as patient was needing more help for the wound care. At that time the patient is being evaluated for the detention placement. The patient is up and about walking and is very much active. As of now the patient will be at the nursing for a couple of weeks until the wound is completely healed. AME
--- NOTE | 2016-10-21 14:50 | PN ---
DATE OF SERVICE: 10/13/16 SUBJECTIVE: The patient was admitted with right foot cellulitis and it is getting dry, wounds are more dry and no oozing. Swelling and the redness is decreased. Wound drainage as grown alcaligenes faecalis. REVIEW OF SYSTEMS: CONSTITUTIONAL: No fever, no chills. HEENT: Normal. ENDOCRINE: No weight gain, no weight loss. CVS: No angina symptoms. No CHF symptoms. No palpitations. No atypical chest pain for CAD. No shortness of breath. No PND, no orthopnea. RESPIRATORY: No cough, no hemoptysis. GI: No nausea, no vomiting. No abdominal pain. : No hematuria. No polyuria. MUSCULOSKELETAL:. No joint swelling. PSYCHIATRIC: Not anxious. No depression. No suicidal thoughts. No homicidal thoughts. SKIN: Intact. No rash. PHYSICAL EXAMINATION: V/S: Blood pressure 119/57, respiratory rate 18, heart rate 70, temperature 97.7. HEENT: Normocephalic, atraumatic. Mucosa dry. Pallor positive. No icterus. NECK: Supple. No JVD, no carotid bruit. No lymphadenopathy. LUNGS: Decreased and clear to auscultation. No rales or rhonchi. HEART: S1, S2 normal. No S3. No murmur, gallop or regurgitation. ABDOMEN: Soft, nontender. Bowel sounds active. No rigidity. No rebound or guarding. No CVA tenderness. EXTREMITIES: No clubbing, cyanosis or pedal edema. Right dorsum of the foot redness and swelling is decreased. More scaly lesions are present. Open areas are all dried up. Left foot only the toes are affected red and scaly lesions no oozing. MUSCULOSKELETAL: No joint swelling. NEUROLOGIC: Awake, alert, oriented times three. No focal deficit. LYMPHATIC: No lymph nodes palpable. SKIN: Intact. LAB: WBC 10.17, hgb 11.2, hct 34.5, plt count 294, sodium 140, potassium 4.5, chloride 106, Bicarb 26, BUN 21, creatinine 1.26. ASSESSMENT: 1. Bilateral foot cellulitis right more than the left 2. Chronic kidney disease 3. Diabetes labile 4. Anemia 5. History of lung mass going for the surgery 6. Chronic lumbar back pain mostly from lung cancer 7. Osteoarthritis 8. Alzheimer's Dementia PLAN: 1. Continue Rocephin, Vancomycin and Diflucan 2. Accu-checks with coverage 3. Activity as tolerated. TIME SPENT: More than 30 minutes MTDD
== END 2016-10-19 13:25 | DRG 603 ==
LOC: MEDSURG B 14:20
PROVIDERS: ADMIT Emergency Medicine; ATTEND Emergency Medicine
DX: L03.115 Cellulitis of right lower limb (principal); C34.90 Malignant neoplasm of unspecified part of unspecified bronchus or lung; L03.032 Cellulitis of left toe; B96.89 Other specified bacterial agents as the cause of diseases classified elsewhere; R91.8 Other nonspecific abnormal finding of lung field; I12.9 Hypertensive chronic kidney disease with stage 1 through stage 4 chronic kidney disease, or unspecified chronic kidney disease; N18.9 Chronic kidney disease, unspecified; E11.9 Type 2 diabetes mellitus without complications; D64.9 Anemia, unspecified; E78.5 Hyperlipidemia, unspecified; F32.9 Major depressive disorder, single episode, unspecified; G30.9 Alzheimer's disease, unspecified; F02.80 Dementia in other diseases classified elsewhere, unspecified severity, without behavioral disturbance, psychotic disturbance, mood disturbance, and anxiety; N40.0 Benign prostatic hyperplasia without lower urinary tract symptoms; K21.9 Gastro-esophageal reflux disease without esophagitis; G25.81 Restless legs syndrome; M47.9 Spondylosis, unspecified; F17.200 Nicotine dependence, unspecified, uncomplicated; Z79.899 Other long term (current) drug therapy
CPT/HCPCS: 36415; 80053; 80202; 81001; 82550; 82962; 83605; 83874; 84484; 85025; 87040; 87070; 87077; 87186; 93005; 93010

== ENCOUNTER 2017-02-23 15:17 | Outpatient (CLI) ==
--- NOTE | 2017-02-23 15:49 | DI ---
EXAM: Chest two view, frontal and lateral views. HISTORY: Fever. COMPARISON: 12/10/2016. FINDINGS: Right-sided chest port noted. Postsurgical change of the right lung with associated volum e loss noted. There is consolidation in the right perihilar region. Blunting of the right costophre vasquez angle also present. Left lung is clear. No pneumothorax identified. Heart size is normal. No acute osseous abnormality detected. IMPRESSION: Right perihilar consolidation and small right pleural effusion. Follow-up is recommended.
== END 2017-02-23 15:18 | disposition home or self-care (01) ==
LOC: RAD 15:17
PROVIDERS: ATTEND Internal Medicine Medical Oncology
DX: R50.9 Fever, unspecified (principal)

== ENCOUNTER 2017-04-04 15:47 | Outpatient (CLI) ==
[2017-04-04 15:53] LABS: BASOPHILS # (AUTO) 0.1 K/uL (0-0.2); BASOPHILS % (AUTO) 0.8 % (0.0-3.0); EOSINOPHILS # (AUTO) 0.1 K/ul (0.0-0.7); EOSINOPHILS % (AUTO) 0.6 % (0.0-7.0); HEMATOCRIT 34.4 % (42.0-52.0); HEMOGLOBIN 11.3 g/dl (14.0-18.0); IMMATURE GRANULOCYTE % (AUTO) 1.1 % (0.0-5.0); LYMPHOCYTES # (AUTO) 4.3 K/uL (0.60-3.4); LYMPHOCYTES % (AUTO) 32.3 (10.0-50.0); MEAN CORPUSCULAR HEMOGLOBIN 29.3 pg (27.0-31.0); MEAN CORPUSCULAR HGB CONC 32.8 (31.8-35.4); MEAN CORPUSCULAR VOLUME 89.1 fl (80.0-94.0); MONOCYTES # (AUTO) 1.5 K/uL (0.4-2.0); MONOCYTES % (AUTO) 11.6 (0-10); NEUTROPHILS # (AUTO) 7.1 K/ul (2.0-6.9); NEUTROPHILS % (AUTO) 53.6; PLATELET COUNT 308 10^3/uL (140-440); RED BLOOD COUNT 3.86 10^6/ul (4.70-6.10); WHITE BLOOD COUNT 13.17 K/ul (4.2-10.2)
[2017-04-04 16:15] LABS: ALBUMIN 2.9 g/dL (3.4-5.0); ALBUMIN/GLOBULIN RATIO 0.58; ANION GAP 14.2; BILIRUBIN,TOTAL 0.2 mg/dL (0.00-1.20); BUN/CREATININE RATIO 14.55; CALCIUM 9.6 mg/dL (8.2-10.2); CREATININE 1.58 mg/dL (0.60-1.10); POTASSIUM 4.2 mmol/L (3.5-5.1); TOTAL PROTEIN 7.9 g/dL (5.8-8.1)
== END 2017-04-04 15:48 | disposition home or self-care (01) ==
LOC: NONPT 15:47
PROVIDERS: ATTEND Family Medicine
DX: C34.91 Malignant neoplasm of unspecified part of right bronchus or lung (principal); N18.9 Chronic kidney disease, unspecified; D63.1 Anemia in chronic kidney disease
CPT/HCPCS: 80053; 85025

== ENCOUNTER 2017-04-22 18:00 | Outpatient (CLI) ==
[2017-04-22 18:20] LABS: BASOPHILS # (AUTO) 0.1 K/uL (0-0.2); BASOPHILS % (AUTO) 0.5 % (0.0-3.0); EOSINOPHILS # (AUTO) 0.1 K/ul (0.0-0.7); EOSINOPHILS % (AUTO) 0.3 % (0.0-7.0); HEMATOCRIT 31.1 % (42.0-52.0); HEMOGLOBIN 10.5 g/dl (14.0-18.0); IMMATURE GRANULOCYTE % (AUTO) 9.2 % (0.0-5.0); LYMPHOCYTES # (AUTO) 3.5 K/uL (0.60-3.4); LYMPHOCYTES % (AUTO) 19.9 (10.0-50.0); MEAN CORPUSCULAR HEMOGLOBIN 30.2 pg (27.0-31.0); MEAN CORPUSCULAR HGB CONC 33.8 (31.8-35.4); MEAN CORPUSCULAR VOLUME 89.4 fl (80.0-94.0); MONOCYTES # (AUTO) 1.2 K/uL (0.4-2.0); MONOCYTES % (AUTO) 6.5 (0-10); NEUTROPHILS # (AUTO) 11.2 K/ul (2.0-6.9); NEUTROPHILS % (AUTO) 63.6; PLATELET COUNT 257 10^3/uL (140-440); RED BLOOD COUNT 3.48 10^6/ul (4.70-6.10); WHITE BLOOD COUNT 17.59 K/ul (4.2-10.2)
[2017-04-22 18:30] LABS: ALBUMIN/GLOBULIN RATIO 0.6; BILIRUBIN,TOTAL 0.18 mg/dL (0.00-1.20); CALCIUM 9.1 mg/dL (8.2-10.2); CREATININE 1.84 mg/dL (0.60-1.10)
[2017-04-22 18:31] LABS: BUN/CREATININE RATIO 9.78
== END 2017-04-22 18:01 | disposition home or self-care (01) ==
LOC: LAB 18:00
PROVIDERS: ATTEND Emergency Medicine
DX: Z01.812 Encounter for preprocedural laboratory examination (principal)
CPT/HCPCS: 36415; 80053; 85025

== ENCOUNTER 2017-05-03 11:36 | Outpatient (CLI) | payer OTHER ==
[2017-05-03 12:00] LABS: BASOPHILS # (AUTO) 0.1 K/uL (0-0.2); BASOPHILS % (AUTO) 0.7 % (0.0-3.0); EOSINOPHILS % (AUTO) 0.1 % (0.0-7.0); HEMOGLOBIN 10.9 g/dl (14.0-18.0); IMMATURE GRANULOCYTE % (AUTO) 0.8 % (0.0-5.0); LYMPHOCYTES # (AUTO) 3.5 K/uL (0.60-3.4); LYMPHOCYTES % (AUTO) 23.9 (10.0-50.0); MEAN CORPUSCULAR HEMOGLOBIN 30.1 pg (27.0-31.0); MEAN CORPUSCULAR VOLUME 91.2 fl (80.0-94.0); MONOCYTES # (AUTO) 1.5 K/uL (0.4-2.0); MONOCYTES % (AUTO) 10.3 (0-10); NEUTROPHILS # (AUTO) 9.4 K/ul (2.0-6.9); NEUTROPHILS % (AUTO) 64.2; PLATELET COUNT 380 10^3/uL (140-440); RED BLOOD COUNT 3.62 10^6/ul (4.70-6.10)
[2017-05-03 12:17] LABS: ALBUMIN 3.2 g/dL (3.4-5.0); ALBUMIN/GLOBULIN RATIO 0.62; ANION GAP 12.4; BILIRUBIN,TOTAL 0.3 mg/dL (0.00-1.20); BUN/CREATININE RATIO 14.77; CALCIUM 9.8 mg/dL (8.2-10.2); CREATININE 1.76 mg/dL (0.60-1.10); POTASSIUM 4.4 mmol/L (3.5-5.1); TOTAL PROTEIN 8.4 g/dL (5.8-8.1)
== END 2017-05-03 11:37 | disposition home or self-care (01) ==
LOC: NONPT 11:36 → LAB 11:37
PROVIDERS: ATTEND Emergency Medicine
DX: I10 Essential (primary) hypertension (principal)
CPT/HCPCS: 80053; 85025

== ENCOUNTER 2017-05-23 11:55 | Outpatient (CLI) | END 2017-05-23 11:56 | disposition home or self-care (01) | LOC: NONPT 11:55 | PROVIDERS: ATTEND Emergency Medicine | DX: C34.91 Malignant neoplasm of unspecified part of right bronchus or lung (principal); D64.9 Anemia, unspecified; N40.0 Benign prostatic hyperplasia without lower urinary tract symptoms | CPT/HCPCS: 80053; 85025 ==

== ENCOUNTER 2017-05-31 10:26 | Outpatient (CLI) ==
--- NOTE | 2017-05-31 11:21 | CT ---
EXAM: CT chest without contrast HISTORY: Adenocarcinoma of the lung COMPARISON: Chest x-ray 02/23/2017 and multiple priors with CT chest 08/27/2016 and multiple priors TECHNIQUE: Serial axial images of the chest were obtained from the lung apices to the upper abdomen without contrast. These were viewed in multiple planes. FINDINGS: The thyroid is normal. There is a right Port-A-Cath with the tip in the SVC. The visuali zed vessels are unremarkable without aneurysm or stenosis. The heart is normal in size without peric ardial effusion. There are no pathologically enlarged mediastinal or hilar lymph nodes. There are postsurgical changes in the right hilum and upper lung. There is mild emphysematous diseas e. There is ground-glass in the right lung measuring 0.7 cm on image 17. The airways demonstrate mi nimal thickening. There is a small focal area of central ground-glass in the left lower lobe on imag e 14 which is unchanged in appearance. Irregular ground-glass nodularity in the anterior left lung o n image 29 is unchanged measuring approximately 1 cm on axial image 29. There are changes of right l ower lobectomy. The soft tissues in the upper abdomen on this limited evaluation are better evaluated on same day CT abdomen pelvis. The osseous structures are unremarkable. IMPRESSION: 1. Right lower lobectomy changes are present with associated mild fibrosis and surgical change. The previously identified right hilar lymph node is not identified, although this is limited due to lack of contrast. 2. There is ground-glass noted in the periphery of the right lung and unchanged left lung parenchyma l ground-glass.
--- NOTE | 2017-05-31 11:21 | CT ---
EXAM: CT ABDOMEN AND PELVIS HISTORY: Adenocarcinoma TECHNIQUE: CT abdomen and pelvis without intravenous contrast. Images were reconstructed using 5 mm section thickness. Reformations were prepared. COMPARISON: 02/09/2016 FINDINGS: Diagnostic limitations exist without including contrast enhanced images. No focal hepatic or splenic lesions. Gallbladder, pancreas, adrenal glands and kidneys are within normal limits. Mild to moder ate atherosclerotic disease of the aorta. No obvious lymphadenopathy. Stomach unremarkable. Normal appendix. Normal bowel gas pattern. Urinary bladder and prostate withi n normal limits. No ascites. Stable fatty bilateral inguinal hernias. No acute bony abnormality or evidence of lytic lesion. See also same day CT thorax report. IMPRESSION: 1. No evidence of metastatic disease to the abdomen or pelvis. 2. Mild to moderate atherosclerotic disease.
== END 2017-05-31 10:27 | disposition home or self-care (01) ==
LOC: RAD 10:26
PROVIDERS: ATTEND Internal Medicine Medical Oncology
DX: C34.91 Malignant neoplasm of unspecified part of right bronchus or lung (principal)

== ENCOUNTER 2017-07-20 09:50 | Outpatient (CLI) ==
[2017-07-20 10:08] VITALS: BP 161/64; TEMP 97.8
[2017-07-20] MEDS ORDERED: HEPARIN 500 UNIT/5 ML (PORT ACCESS TRAY ONLY) IVF ONE (10:59)
== END 2017-07-20 09:51 | disposition home or self-care (01) ==
LOC: OPMED 09:50
PROVIDERS: ATTEND Internal Medicine Medical Oncology
DX: Z45.2 Encounter for adjustment and management of vascular access device (principal)
CPT/HCPCS: 96523

== ENCOUNTER 2017-07-27 08:03 | Outpatient (CLI) ==
--- NOTE | 2017-07-27 09:29 | CT ---
EXAM: CT abdomen pelvis with contrast HISTORY: Right lung adenocarcinoma COMPARISON: CT abdomen pelvis 05/31/2017 and numerous priors dating back to 03/28/2015 TECHNIQUE: Serial axial images of the abdomen pelvis were performed after 100 mL is of Visipaque IV contrast was administered. These were obtained from the lung bases through the inferior pelvis. FINDINGS: The lung bases are better evaluated and described by same day CT chest The liver demonstrates no focal hepatic lesion. The gallbladder is mildly distended. The spleen is unremarkable. The kidneys are normal. The adrenal glands are normal. The pancreas is unremarkable. Stomach is normal. The small bowel in the abdomen and pelvis is normal. The appendix is normal. The colon is unremarka ble. The urinary bladder is partially distended. Prostate is normal. There is a fat-containing rig ht inguinal hernia. There is no free air, free fluid or lymphadenopathy. There is moderate atherosc lerotic disease. The osseous structures demonstrate no acute abnormality, lytic or blastic lesion. IMPRESSION: 1. No evidence of metastatic disease to the abdomen or pelvis. 2. Unchanged degenerative disease of the spine and atherosclerotic disease.
--- NOTE | 2017-07-27 09:30 | CT ---
EXAM: CT chest with intravenous contrast 07/27/2017. Sagittal and coronal reformatted images obtain ed HISTORY: Adenocarcinoma with partial right pneumonectomy. COMPARISON: 05/31/2017, 08/27/2016, 11/27/2014 FINDINGS: The heart size appears within normal limits. There is no pericardial effusion. No pathologic appearing mediastinal lymphadenopathy. Small mediastinal lymph nodes appear physiologi c and stable. Volume loss of the right hemithorax consistent with previous right-sided partial pneumonectomy. Linear and nodular density within the left upper lobe on image 27 and 28 appears stable. Minimal tu und-glass density within the left upper lobe on image 14 is stable. These findings are stable dating back to 11/27/2014 and most compatible benign etiology. Postoperative atelectasis and/or scarring wi thin the right lung appears stable. There is no new pulmonary nodule or mass. Limited views of the upper abdomen show no acute abnormality. Right chest port well positioned. No acute osseous abnormality. IMPRESSION: 1. Linear and nodular densities of the left lung appear stable. Reference images above. 2. Postoperative changes within the right chest. Partial pneumonectomy with postoperative atelectas is and/or scarring. 3. Small physiologic mediastinal lymph nodes appear stable.
== END 2017-07-27 08:04 | disposition home or self-care (01) ==
LOC: RAD 08:03
PROVIDERS: ATTEND Internal Medicine Medical Oncology
DX: C34.91 Malignant neoplasm of unspecified part of right bronchus or lung (principal)

== ENCOUNTER 2017-07-29 10:03 | Outpatient (RCR) | END 2017-08-06 | LOC: NEWBEG 10:03 | PROVIDERS: ATTEND Psychiatry & Neurology Psychiatry | DX: F33.1 Major depressive disorder, recurrent, moderate (principal); F01.50 Vascular dementia, unspecified severity, without behavioral disturbance, psychotic disturbance, mood disturbance, and anxiety | CPT/HCPCS: 90792; 90853; 99214 ==

== ENCOUNTER 2017-08-05 11:28 | Outpatient (CLI) | payer OTHER | END 2017-08-05 11:29 | LOC: LAB 11:28 | PROVIDERS: ATTEND Internal Medicine Medical Oncology | DX: C34.91 Malignant neoplasm of unspecified part of right bronchus or lung (principal); E11.9 Type 2 diabetes mellitus without complications; Z12.5 Encounter for screening for malignant neoplasm of prostate | CPT/HCPCS: 36415; 80053; 82607; 83540; 83550; 85025 ==

== ENCOUNTER 2017-08-19 09:40 | Outpatient (CLI) | payer OTHER ==
[2017-08-19 09:55] VITALS: BP 151/63; TEMP 98.7
[2017-08-19] MEDS ORDERED: HEPARIN 500 UNIT/5 ML (PORT ACCESS TRAY ONLY) IVF ONE (10:27)
== END 2017-08-19 10:11 | disposition home or self-care (01) ==
LOC: OPMED 09:40
PROVIDERS: ATTEND Internal Medicine Medical Oncology
DX: Z45.2 Encounter for adjustment and management of vascular access device (principal)
CPT/HCPCS: 96523

== ENCOUNTER 2017-08-31 10:00 | Outpatient (RCR) | END 2017-09-05 23:59 | LOC: NEWBEG 10:00 | PROVIDERS: ATTEND Psychiatry & Neurology Psychiatry | DX: F33.1 Major depressive disorder, recurrent, moderate (principal); F01.50 Vascular dementia, unspecified severity, without behavioral disturbance, psychotic disturbance, mood disturbance, and anxiety | CPT/HCPCS: 90853; 99213 ==

== ENCOUNTER 2017-09-16 09:17 | Outpatient (CLI) ==
[2017-09-16 09:29] VITALS: BP 155/57; TEMP 97.9
[2017-09-16] MEDS ORDERED: SALINE FLUSH (PORT ACCESS TRAY USE ONLY) IVF ONE (09:39)
[2017-09-16] MEDS ORDERED: HEPARIN 500 UNIT/5 ML (PORT ACCESS TRAY ONLY) IVF ONE (09:39)
== END 2017-09-16 09:18 | disposition home or self-care (01) ==
LOC: OPMED 09:17
PROVIDERS: ATTEND Internal Medicine Medical Oncology
DX: Z45.2 Encounter for adjustment and management of vascular access device (principal)
CPT/HCPCS: 96523

== ENCOUNTER 2017-10-05 10:00 | Outpatient (RCR) | END 2017-10-06 23:59 | LOC: NEWBEG 10:00 | PROVIDERS: ATTEND Psychiatry & Neurology Psychiatry | DX: F33.1 Major depressive disorder, recurrent, moderate (principal); F01.50 Vascular dementia, unspecified severity, without behavioral disturbance, psychotic disturbance, mood disturbance, and anxiety; Z45.2 Encounter for adjustment and management of vascular access device | CPT/HCPCS: 90853; 96523; 99213 ==

== ENCOUNTER 2017-10-14 09:27 | Outpatient (CLI) ==
[2017-10-14 09:50] VITALS: BP 148/55; TEMP 98
[2017-10-14] MEDS ORDERED: SALINE FLUSH (PORT ACCESS TRAY USE ONLY) IVF ONE (09:51)
[2017-10-14] MEDS ORDERED: HEPARIN 500 UNIT/5 ML (PORT ACCESS TRAY ONLY) IVF ONE (09:51)
== END 2017-10-14 10:03 | disposition home or self-care (01) ==
LOC: OPMED 09:27
PROVIDERS: ATTEND Internal Medicine Medical Oncology
DX: Z45.2 Encounter for adjustment and management of vascular access device (principal)
CPT/HCPCS: 96523

== ENCOUNTER 2017-10-26 09:28 | Outpatient (CLI) | payer OTHER ==
--- NOTE | 2017-10-26 10:52 | DI ---
EXAM: Three views of the lumbar spine. History: Lumbar radiculopathy. Findings: Severe atherosclerotic vascular calcifications. Osteopenia. No acute fracture or subluxa tion of the lumbar spine. Mild to moderate multilevel degenerative disc space narrowing with endplat e sclerosis and osteophyte formation. Mild to moderate facet hypertrophy within the lower lumbar spi ne. Impression: 1. No acute osseous abnormality of the lumbar spine. 2. Mild to moderate degenerative changes. 3. Severe atherosclerotic vascular disease. 4. Osteopenia
== END 2017-10-26 09:29 | disposition home or self-care (01) ==
LOC: RAD 09:28
PROVIDERS: ATTEND Emergency Medicine
DX: M54.16 Radiculopathy, lumbar region (principal)

== ENCOUNTER 2017-11-02 10:00 | Outpatient (RCR) | END 2017-11-05 23:59 | LOC: NEWBEG 10:00 | PROVIDERS: ATTEND Psychiatry & Neurology Psychiatry | DX: F33.1 Major depressive disorder, recurrent, moderate (principal); F01.50 Vascular dementia, unspecified severity, without behavioral disturbance, psychotic disturbance, mood disturbance, and anxiety | CPT/HCPCS: 90853; 99213 ==

== ENCOUNTER 2017-11-25 14:51 | Outpatient (CLI) ==
--- NOTE | 2017-11-25 15:29 | CT ---
EXAM: CT of the abdomen pelvis without contrast History: Epigastric abdominal pain. History of lung cancer Comparison: CT abdomen pelvis 07/27/2017 Technique: Multiplanar CT images through the abdomen pelvis were obtained without the administration of IV contrast. Findings: Scarring and volume loss again seen within the right lower hemithorax. No acute osseous ab normalities. The liver is enlarged. No focal liver or splenic lesions. Gallbladder is contracted. No peripancre atic inflammation. Atherosclerotic vascular calcifications. Adrenal glands are unremarkable. No re nal stones and no hydronephrosis. The appendix is normal. No dilated loops of bowel. Scattered col onic stool. No bladder wall thickening. Prostate is not enlarged. No free air and no ascites. No p erirectal inflammation. 2.3 cm right inguinal lymph node. 1 cm right external iliac chain lymph nod e. No other enlarged lymph nodes. Impression: 1. No acute intra-abdominal or pelvic process. 2. Right inguinal and right external iliac chain lymphadenopathy could be reactive or metastatic. F ollow-up recommended. Or consider biopsy of the inguinal lymph node. 3. Hepatomegaly. 4. Atherosclerotic vascular disease.
== END 2017-11-25 14:52 | disposition home or self-care (01) ==
LOC: RAD 14:51
PROVIDERS: ATTEND Emergency Medicine
DX: R10.13 Epigastric pain (principal); E11.9 Type 2 diabetes mellitus without complications; I10 Essential (primary) hypertension; K76.0 Fatty (change of) liver, not elsewhere classified; F32.9 Major depressive disorder, single episode, unspecified
CPT/HCPCS: 36415; 80053; 80061; 83036; 84443; 85025

== ENCOUNTER 2017-12-02 10:00 | Outpatient (RCR) | END 2017-12-06 23:59 | LOC: NEWBEG 10:00 | PROVIDERS: ATTEND Psychiatry & Neurology Psychiatry | DX: F33.1 Major depressive disorder, recurrent, moderate (principal); F01.50 Vascular dementia, unspecified severity, without behavioral disturbance, psychotic disturbance, mood disturbance, and anxiety | CPT/HCPCS: 90853; 99213 ==

== ENCOUNTER 2017-12-07 08:32 | Outpatient (CLI) ==
--- NOTE | 2017-12-07 11:29 | US ---
EXAM: Ultrasound of the right upper quadrant. HISTORY: Right upper quadrant pain. COMPARISON: 11/25/2017 CT. TECHNIQUE: Aguilera scale, color and doppler ultrasound evaluation of the right upper quadrant. FINDINGS: The visualized portions of the pancreas are unremarkable. The pancreatic tail is obscured by bowel ga s. The liver demonstrates minimally increased echogenicity. Visualization of the liver is suboptimal. No discrete hepatic lesions are seen. Hepatopetal flow is seen in the portal vein. The gallbladder is not abnormally distended. No gallstones, gallbladder wall thickening or pericholec ystic fluid is seen. Mild gallbladder sludge is suspected The proximal common bile duct is normal in size measuring 5 mm. The right kidney measures 9.8 x 3.3 x 3.4 cm. No right renal cortical thinning, hydronephrosis or mas ses are identified. IMPRESSION: Minimally increased hepatic echogenicity suggesting possible fatty infiltration. Gallbladder sludge. Otherwise unremarkable appearance of the gallbladder.
[2017-12-07] MEDS ORDERED: HEPARIN 500 UNIT/5 ML (PORT ACCESS TRAY ONLY) IVF ONE (14:26)
[2017-12-07] MEDS ORDERED: SALINE FLUSH (PORT ACCESS TRAY USE ONLY) IVF ONE (14:26)
[2017-12-07 14:29] VITALS: BP 138/72; TEMP 97.2
== END 2017-12-07 08:33 | disposition home or self-care (01) ==
LOC: RAD 08:32
PROVIDERS: ATTEND Emergency Medicine
DX: R10.11 Right upper quadrant pain (principal); Z45.2 Encounter for adjustment and management of vascular access device
CPT/HCPCS: 96523

== ENCOUNTER 2017-12-12 08:40 | Outpatient (CLI) ==
--- NOTE | 2017-12-12 09:24 | CT ---
EXAM: CT of the chest without contrast History: Follow-up lung cancer. Comparison: Chest CT 07/27/2017 Technique: Multiplanar CT images through the thorax were obtained following administration of IV con trast Findings: Heart size is upper limits of normal. Coronary calcifications. No thoracic aortic aneury sm. No pathologically enlarged thoracic lymph nodes. Evaluation for hilar lymph nodes is limited du e to the lack of contrast administration. Postsurgical changes again seen within the right lung. Sc attered areas of subsegmental atelectasis and scarring again seen within the right lung. No change i n the left upper lobe micronodules. No developing lung masses or lung nodules. Mild emphysema again noted. Within the visualized upper abdomen, the liver is fatty. No acute osseous abnormalities. Impression: No progressive malignancy. No change compared to the prior study.
== END 2017-12-12 08:41 | disposition home or self-care (01) ==
LOC: RAD 08:40
PROVIDERS: ATTEND Internal Medicine Medical Oncology
DX: C34.91 Malignant neoplasm of unspecified part of right bronchus or lung (principal)

== ENCOUNTER 2017-12-14 07:51 | Outpatient (CLI) ==
--- NOTE | 2017-12-14 12:03 | NM ---
EXAM: Hepatobiliary imaging HISTORY: The right upper quadrant pain the COMPARISON: Right upper quadrant ultrasound on 12/07/2017 showed fatty liver. Gallbladder sludge. TECHNIQUE: Patient was injected 5.4 mCi of technetium 99m mebrofenin intravenously. Multiple anterio r scintigraphic images of the right upper quadrant region of the abdomen were obtained up to 1 hour i nterval. Patient was subsequently given fatty meal. FINDINGS: There is normal visualization of liver, gallbladder, bile duct and small bowel loops. Gall bladder ejection fraction is 43%. IMPRESSION: Normal study
== END 2017-12-14 07:52 | disposition home or self-care (01) ==
LOC: RAD 07:51
PROVIDERS: ATTEND Emergency Medicine
DX: R93.2 Abnormal findings on diagnostic imaging of liver and biliary tract (principal)

== ENCOUNTER 2018-01-06 10:00 | Outpatient (RCR) | END 2018-01-06 23:59 | LOC: NEWBEG 10:00 | PROVIDERS: ATTEND Psychiatry & Neurology Psychiatry | DX: F33.1 Major depressive disorder, recurrent, moderate (principal); F01.50 Vascular dementia, unspecified severity, without behavioral disturbance, psychotic disturbance, mood disturbance, and anxiety | CPT/HCPCS: 90853; 99213 ==

== ENCOUNTER 2018-02-03 10:00 | Outpatient (RCR) | payer OTHER | END 2018-02-05 23:59 | LOC: NEWBEG 10:00 | PROVIDERS: ATTEND Psychiatry & Neurology Psychiatry | DX: F33.1 Major depressive disorder, recurrent, moderate (principal); F01.50 Vascular dementia, unspecified severity, without behavioral disturbance, psychotic disturbance, mood disturbance, and anxiety | CPT/HCPCS: 90853; 99213 ==

== ENCOUNTER 2018-02-10 09:21 | Outpatient (CLI) ==
[2018-02-10 09:44] VITALS: BP 136/66; TEMP 98.2
[2018-02-10] MEDS: SALINE FLUSH (PORT ACCESS TRAY USE ONLY) IVF ONE (10:05)
[2018-02-10] MEDS: HEPARIN 500 UNIT/5 ML (PORT ACCESS TRAY ONLY) IVF ONE (10:05)
== END 2018-02-10 09:22 | disposition home or self-care (01) ==
LOC: OPMED 09:21
PROVIDERS: ATTEND Internal Medicine Medical Oncology
DX: Z45.2 Encounter for adjustment and management of vascular access device (principal); F11.20 Opioid dependence, uncomplicated
CPT/HCPCS: 80306; 96523

== ENCOUNTER 2018-03-03 10:00 | Outpatient (RCR) | END 2018-03-08 23:59 | LOC: NEWBEG 10:00 | PROVIDERS: ATTEND Psychiatry & Neurology Psychiatry | DX: F33.1 Major depressive disorder, recurrent, moderate (principal); F01.50 Vascular dementia, unspecified severity, without behavioral disturbance, psychotic disturbance, mood disturbance, and anxiety | CPT/HCPCS: 90853; 99213 ==

== ENCOUNTER 2018-05-05 10:00 | Outpatient (RCR) | END 2018-05-08 23:59 | LOC: NEWBEG 10:00 | PROVIDERS: ATTEND Psychiatry & Neurology Psychiatry | DX: F33.1 Major depressive disorder, recurrent, moderate (principal); F01.50 Vascular dementia, unspecified severity, without behavioral disturbance, psychotic disturbance, mood disturbance, and anxiety | CPT/HCPCS: 90853; 99213 ==

== ENCOUNTER 2018-05-19 09:27 | Outpatient (CLI) | payer OTHER ==
--- NOTE | 2018-05-19 11:20 | CT ---
EXAM: CT of the abdomen pelvis with contrast History: Follow-up lung cancer. Comparison: CT abdomen pelvis 02/13/2018, chest CT 05/19/2017 Technique: Multiplanar CT images through the abdomen pelvis were obtained following administration o f IV contrast Findings: For details in the lower lungs, please see dedicated chest CT done on the same day. No ac margo osseous abnormalities. No suspicious osseous lesions are identified by CT. No gallstones are identified by CT. The liver is mildly enlarged and fatty. No focal liver or splen ic lesions. Atherosclerotic vascular calcifications. Pancreas is unremarkable. Adrenal glands are within normal limits. No renal masses and no hydronephrosis. No bowel obstruction. No free air and no ascites. No bladder wall thickening. Prostate is not enlarged. No pathologically enlarged lymp h nodes. Impression: 1. No CT evidence for metastatic disease in the abdomen or pelvis. 2. Mildly enlarged fatty liver
--- NOTE | 2018-05-19 11:38 | CT ---
EXAM: CT of the chest with contrast History: Follow-up lung cancer. Comparison: Chest CT 12/12/2017 Technique: Multiplanar CT images through the thorax were obtained following administration of IV con trast Findings: Heart size is normal. Coronary calcifications. Great vessels are unremarkable. Mild bila teral gynecomastia. 1.2 cm subcarinal lymph node is more noticeable compared to the prior study. No axillary or hilar lymphadenopathy. Postsurgical changes again seen within the right lung. No signi ficant interval change in the left upper lobe micronodules. There is diffuse bronchial wall thickeni ng. There are several new ground-glass centrilobular micronodules within the right lung and there is nodular interlobular septal thickening seen within the right lung. For details in the upper abdomen, please see dedicated CT abdomen pelvis done on the same day. No ac false pass osseous abnormalities. Impression: 1. Several new ground-glass centrilobular micronodules within the right lung and nodular interlobula r septal thickening seen within the right lung which could be due to infectious/inflammatory process or endobronchial spread of tumor. Close attention to on follow-up recommended. 2. Mildly enlarged subcarinal lymph node is more noticeable compared to the prior study. Close atte ntion to on follow-up recommended.
== END 2018-05-19 09:28 | disposition home or self-care (01) ==
LOC: RAD 09:27
PROVIDERS: ATTEND Internal Medicine Medical Oncology
DX: C34.91 Malignant neoplasm of unspecified part of right bronchus or lung (principal); F33.1 Major depressive disorder, recurrent, moderate; F01.50 Vascular dementia, unspecified severity, without behavioral disturbance, psychotic disturbance, mood disturbance, and anxiety
CPT/HCPCS: 90853

== ENCOUNTER 2018-05-26 09:28 | Outpatient (CLI) ==
[2018-05-26 09:41] VITALS: BP 138/74; TEMP 98.6
[2018-05-26] MEDS ORDERED: HEPARIN 500 UNIT/5 ML (PORT ACCESS TRAY ONLY) IVF ONE (09:46)
[2018-05-26] MEDS ORDERED: SALINE FLUSH (PORT ACCESS TRAY USE ONLY) IVF ONE (09:46)
== END 2018-05-26 09:29 | disposition home or self-care (01) ==
LOC: OPMED 09:28
PROVIDERS: ATTEND Internal Medicine Medical Oncology
DX: Z45.2 Encounter for adjustment and management of vascular access device (principal); F33.1 Major depressive disorder, recurrent, moderate; F01.50 Vascular dementia, unspecified severity, without behavioral disturbance, psychotic disturbance, mood disturbance, and anxiety
CPT/HCPCS: 90853; 96523

== ENCOUNTER 2018-06-02 10:00 | Outpatient (RCR) | END 2018-06-08 23:59 | LOC: NEWBEG 10:00 | PROVIDERS: ATTEND Psychiatry & Neurology Psychiatry | DX: F33.1 Major depressive disorder, recurrent, moderate (principal); F01.50 Vascular dementia, unspecified severity, without behavioral disturbance, psychotic disturbance, mood disturbance, and anxiety | CPT/HCPCS: 90853; 99213 ==

== ENCOUNTER 2018-07-03 09:25 | Outpatient (CLI) ==
--- NOTE | 2018-07-03 10:10 | CT ---
EXAM: CT of the abdomen pelvis without contrast History: Follow-up lung cancer. Comparison: CT abdomen pelvis 05/19/2018, chest CT 07/03/2018 Technique: Multiplanar CT images through the abdomen pelvis were obtained without the administration of IV contrast. Findings: For details in the lower lungs, please see dedicated chest CT done on the same day. No ac margo osseous abnormalities. No gallstones identified by CT. Mildly enlarged fatty liver. No focal liver or splenic lesions. At herosclerotic vascular calcifications. No peripancreatic inflammation. Adrenal glands are unremarka ble. No renal stones and no hydronephrosis. No bowel obstruction. No free air and no ascites. The appendix is not dilated or inflamed. No bladder wall thickening. Prostate is not enlarged. No per irectal inflammation. Scattered colonic stool. No inflammatory stranding. No pathologically enlarg ed lymph nodes. Prominent right inguinal lymph nodes, similar to the prior study. Nonspecific poste rior subcutaneous edema. Impression: No CT evidence for metastatic disease in the abdomen or pelvis. No change compared to t he prior study.
--- NOTE | 2018-07-03 10:17 | CT ---
Exam: CT of the chest without intravenous contrast. Comparison: 05/19/2018. Reason for exam: Stage II adenocarcinoma right lung. FINDINGS: Image interpretation is limited by the lack of intravenous contrast administration. Right-sided Port-A-Cath is seen with the tip in the superior vena cava. Imaging interpretation is li mited by the lack of intravenous contrast administration. Similar appearing prominence of the subcarinal lymph node on axial image number 25. Nodular ground-g lass in the left anterior lower lobe on axial image number 25 not significantly changed from previous study. Similar appearing ground-glass in the right anterior lower lobe on axial image number 34. M inimal parenchymal thickening in the right lung base on axial image number 37. Mild emphysematous disease. The aorta is normal in course and caliber. The heart is not enlarged. Impression: 1. Similar appearing ground-glass micronodules and interlobular septal thickening not significantly changed when compared to CT imaging performed on 05/19/2018. Findings can be seen with inflammation, infection and neoplasia. Recommend follow up imaging to 6-8 weeks. To document stability / resolut ion. 2. Similar appearing prominent subcarinal lymph node.
[2018-07-03 10:48] VITALS: BP 130/72; TEMP 98.2
== END 2018-07-03 09:26 | disposition home or self-care (01) ==
LOC: RAD 09:25
PROVIDERS: ATTEND Internal Medicine Medical Oncology
DX: C34.91 Malignant neoplasm of unspecified part of right bronchus or lung (principal); Z45.2 Encounter for adjustment and management of vascular access device
CPT/HCPCS: 96523

== ENCOUNTER 2018-07-31 09:25 | Outpatient (CLI) | payer OTHER ==
[2018-07-31 09:32] VITALS: BP 143/85; TEMP 96.2
[2018-07-31] MEDS ORDERED: VITAMIN B-12 IM STA (09:39)
[2018-07-31] MEDS ORDERED: HEPARIN 500 UNIT/5 ML (PORT ACCESS TRAY ONLY) IVF ONE (09:41)
== END 2018-07-31 09:26 | disposition home or self-care (01) ==
LOC: OPMED 09:25
PROVIDERS: ATTEND Internal Medicine Medical Oncology
DX: C34.91 Malignant neoplasm of unspecified part of right bronchus or lung (principal); D51.9 Vitamin B12 deficiency anemia, unspecified; Z45.2 Encounter for adjustment and management of vascular access device
CPT/HCPCS: 96372; 96523

== ENCOUNTER 2018-08-21 14:17 | Outpatient (CLI) | payer OTHER ==
--- NOTE | 2018-08-21 14:57 | CT ---
EXAM: CT chest without contrast HISTORY: Adenocarcinoma of right lung, stage II COMPARISON: 07/03/2018 TECHNIQUE: CT chest performed without intravenous contrast. Coronal and sagittal reformatted images obtained. FINDINGS: Right chest port terminates in superior vena cava. Thoracic inlet unremarkable. Heart no rmal in size. No pericardial effusion. Aorta normal in caliber. Mild atherosclerosis. Esophagus u nremarkable. Evaluation for lymphadenopathy limited without contrast. Mildly enlarged subcarinal ly mph node measures 0.1 cm, unchanged. Liver diffusely decreased in attenuation. No acute abnormaliti es of the bones. Degenerative change in the spine. No suspicious lytic or blastic lesions identifie d. Mild compression deformity L1 appears unchanged. Central airway patent. No airspace consolidati on. No pleural effusion. No pneumothorax. Mild emphysema. Postsurgical changes in the right lung. Right apical scarring. Mild bibasilar subsegmental atelectasis and/or scarring. Clustered left up per lobe nodularity image 24 appears unchanged. A few scattered bilateral ground-glass nodules appea r unchanged, for example right lung image 11 and left lung image 10. Stable 4 mm nodule left lung im age 35. Similar appearing mild bronchial wall and septal thickening right lung. IMPRESSION: 1. Stable scattered pulmonary nodules. 2. Stable mildly enlarged subcarinal lymph node 3. Similar appearing mild bronchial wall and septal thickening right lung. 4. Mild emphysema. 5. Hepatic steatosis.
== END 2018-08-21 14:18 | disposition home or self-care (01) ==
LOC: RAD 14:17
PROVIDERS: ATTEND Internal Medicine Medical Oncology
DX: C34.91 Malignant neoplasm of unspecified part of right bronchus or lung (principal)

== ENCOUNTER 2018-08-31 09:28 | Outpatient (CLI) ==
[2018-08-31] MEDS ORDERED: VITAMIN B-12 SUBCUT STA (09:39)
[2018-08-31] MEDS ORDERED: HEPARIN 500 UNIT/5 ML (PORT ACCESS TRAY ONLY) IVF ONE (09:40)
[2018-08-31 09:45] VITALS: BP 168/64; TEMP 97.7
[2018-08-31] MEDS ORDERED: VITAMIN B-12 IM STA (09:46)
== END 2018-08-31 09:29 | disposition home or self-care (01) ==
LOC: OPMED 09:28
PROVIDERS: ATTEND Internal Medicine Medical Oncology
DX: C34.91 Malignant neoplasm of unspecified part of right bronchus or lung (principal); D51.9 Vitamin B12 deficiency anemia, unspecified; Z45.2 Encounter for adjustment and management of vascular access device
CPT/HCPCS: 96372; 96523

== ENCOUNTER 2018-09-29 09:07 | Outpatient (CLI) ==
[2018-09-29 09:46] VITALS: BP 174/66; TEMP 98
[2018-09-29] MEDS ORDERED: HEPARIN 500 UNIT/5 ML (PORT ACCESS TRAY ONLY) IVF ONE (10:12)
[2018-09-29] MEDS ORDERED: VITAMIN B-12 IM STA (10:13)
[2018-09-29] MEDS ORDERED: SALINE FLUSH (PORT ACCESS TRAY USE ONLY) IVF ONE (10:13)
== END 2018-09-29 09:08 | disposition home or self-care (01) ==
LOC: OPMED 09:07
PROVIDERS: ATTEND Internal Medicine Medical Oncology
DX: D51.9 Vitamin B12 deficiency anemia, unspecified (principal); C34.91 Malignant neoplasm of unspecified part of right bronchus or lung
CPT/HCPCS: 96372; 96523

== ENCOUNTER 2018-11-02 09:08 | Outpatient (CLI) | payer OTHER ==
[2018-11-02 09:26] VITALS: BP 148/78; TEMP 98.7
[2018-11-02] MEDS ORDERED: VITAMIN B-12 IM STA (09:32)
[2018-11-02] MEDS ORDERED: HEPARIN 500 UNIT/5 ML (PORT ACCESS TRAY ONLY) IVF ONE (09:36)
[2018-11-02] MEDS ORDERED: SALINE FLUSH (PORT ACCESS TRAY USE ONLY) IVF ONE (09:37)
== END 2018-11-02 09:09 | disposition home or self-care (01) ==
LOC: OPMED 09:08
PROVIDERS: ATTEND Internal Medicine Medical Oncology
DX: C34.91 Malignant neoplasm of unspecified part of right bronchus or lung (principal); Z45.2 Encounter for adjustment and management of vascular access device; D51.9 Vitamin B12 deficiency anemia, unspecified
CPT/HCPCS: 96372

== ENCOUNTER 2019-01-04 09:18 | Outpatient (CLI) | payer OTHER ==
[2019-01-04] MEDS: SALINE FLUSH (PORT ACCESS TRAY USE ONLY) IVF ONE (09:43)
[2019-01-04] MEDS: HEPARIN 500 UNIT/5 ML (PORT ACCESS TRAY ONLY) IVF ONE (09:44)
[2019-01-04] MEDS: VITAMIN B-12 IM STA (09:45)
[2019-01-04 09:55] VITALS: BP 135/54; TEMP 97.4
== END 2019-01-04 09:19 | disposition home or self-care (01) ==
LOC: OPMED 09:18
PROVIDERS: ATTEND Internal Medicine Medical Oncology
DX: D51.9 Vitamin B12 deficiency anemia, unspecified (principal); C34.91 Malignant neoplasm of unspecified part of right bronchus or lung; Z45.2 Encounter for adjustment and management of vascular access device
CPT/HCPCS: 96372